=== PATIENT | male | born 1940 | race Caucasian/White ===

== ENCOUNTER 2017-08-05 15:40 | Inpatient (IN) | payer MEDICARE, MEDICAID ==
--- NOTE | 2017-08-05 15:48 | ED Physician Chart ---
ED Chief Complaint/HPI - Patient Information Date Seen:: 08/05/17 Time Seen:: 15:35 Chief Complaint:: Dysuria History of Present Illness:: onset x one day of dysuria; hx of UTIs; no report of trauma, H/As, neck pain, cough, C/P, SOB, Abd. Pain, A/N/V/D/C, fever, chills, or bleeding Historian:: Patient, EMS Review:: Nurse's Note Reviewed, Old Chart Reviewed, EMS run form Reviewed ED Review of Systems - Review of Systems General/Constitutional: Fever, No chills, No weight loss, No weakness, No diaphoresis, No edema, No loss of appetite Skin: No skin lesions, No rash, No bruising Head: No headache, No light-headedness Eyes: No loss of vision, No pain, No diplopia ENT: No earache, No nasal drainage, No sore throat, No tinnitus Neck: No neck pain, No swelling, No thyromegaly, No stiffness, No mass noted Cardio Vascular: No chest pain, No palpitations, No PND, No orthopnea, No edema Pulmonary: No SOB, No cough, No sputum, No wheezing GI: No nausea, No vomiting, No diarrhea, No pain, No melena, No hematochezia, No constipation, No hematemesis G/U: Dysuria, Frequency, Hematuria, No nacturia Musculoskeletal: No bone or joint pain, No back pain, No muscle pain Endocrine: No polyuria, No polydipsia Psychiatric: No prior psych history, No depression, No anxiety, No suicidal ideation, No homicidal ideation, No auditory hallucination, No visual hallucination Hematopoietic: No bruising, No lymphadenopathy Allergic/Immuno: No urticaria, No angioedema Neurological: No syncope, No focal symptoms, No weakness, No paresthesia, No headache, No seizure, No dizziness, No confusion, No vertigo ED Past Medical History - Past Medical History Obtainable: Yes Past Medical History: HTN, Dyslipidemia, PUD/GERD, Dementia, Other (UTIs; Parkinson's Disease) Family History: Diabetes Melitus, HTN Social History: Non Smoker, No Alcohol, No Drug Use, Single, Care Facility Surgical History: None Psychiatricy History: Dementia Medication: Reviewed ED Physical Exam - Physical Examination General/Constitutional: Awake, Well-developed, well-nourished, Alert, No distress, GCS 15, Non-toxic appearing, Ambulatory Head: Atraumatic Eyes: Lids, conjuctiva normal, PERRL, EOMI Skin: Nl inspection, No rash, No skin lesions, No ecchymosis, Well hydrated, No lymphadenopathy ENMT: External ears, nose nl, TM canals nl, Nasal exam nl, Lips, teeth, gums nl , Oropharynx nl, Tonsils nl Neck: Nontender, Full ROM w/o pain, No JVD, No nuchal rigidity, No bruit, No mass, No stridor Respiratory: Nl effort/Exclusion, Clear to Auscultation, No Wheeze/Rhonchi/Rales Cardio Vascular: RRR, No murmur, gallop, rubs, NL S1 S2, Carotid/Femoral/Distal pulses equal bilaterally GI: No tenderness/rebounding/guarding, No organomegaly, No hernia, Normal BS's, Nondistended, No mass/bruits, No McBurney tenderness, Rectum exam nl : No CVA tenderness Extremities: No tenderness or effusion, Full ROM, normal strength in all extremities, No edema, Normal digits & nails Neuro/Psych: Alert/oriented, DTR's symmetric, Normal sensory exam, Normal motor strength, Judgement/insight normal, Mood normal, Normal gait, No focal deficits Misc: Normal back, No paraspinal tenderness ED Labs/Radiology/EKG Results - Lab Results Comments:: H/H: + Anemia; BUN: 37; U/A: + Pyuria., Hematuria; Na+: 134 ED Septic Shock - . Is Septic Shock (SBP<90, OR Lactate>4 mmol\L) present?: No ED Reassessment (Disposition) - Reassessment Reassessment Condition:: Improved - Diagnosis Diagnosis:: Dx: Hyponatremia; Dehydration; Anemia; UTI; Cystitis - Aftercare/Follow up Instructions Aftercare/Follow-Up Instructions:: Counseled pt regarding lab results/diagnosis & need follow up, Counseled pt & family regarding lab results/diagnosis & need follow up - Patient Disposition Discharge/Transfer:: Acute Care w/in this hosp Accepting Physician:: Dr. Yoder Time Called:: [id number] Time Responded:: 17:45 Admitted to:: Med/Surg Spoke to:: Dr. Yoder Admitting Medical Physician:: Dr. Yoder Condition at Disposition:: Stable, Improved
[2017-08-05 16:25] LABS: % BASOPHILS 0.4 % (0.0-2.0); % EOSINOPHILS 3.3 % (0.0-5.0); % LYMPHOCYTES 16.5 % (20.0-50.0); % MONOCYTES 7.3 % (2.0-10.0); % NEUTROPHILS 72.5 % (40.0-80.0); EOSINOPHILE ABSOLUTE 0.3 Th/cmm (0.1-0.4); HEMATOCRIT 34.9 % (41.0-60); HEMOGLOBIN 11.7 gm/dL (12-16); LYMPHOCYTE ABSOLUTE 1.4 Th/cmm (1.5-3.0); MEAN CELL VOLUME 89.6 fl (80-99); MEAN CORPUSCULAR HEMOGLOBIN 30.1 pg (27.0-31.0); MEAN CORPUSCULAR HGB CONC 33.6 pg (28.0-36.0); MEAN PLATELET VOLUME 7.5 fl; MONOCYTE ABSOLUTE 0.6 Th/cmm (0.3-1.0); NEUTROPHILE ABSOLUTE 6.1 Th/cmm (1.8-8.0); PLATELET COUNT 255 Th/cmm (150-400); RED BLOOD COUNT 3.89 Mil/cmm (3.80-5.80); RED CELL DISTRIBUTION WIDTH 13.7 % (11.5-20.0); WHITE BLOOD COUNT 8.4 Th/cmm (4.8-10.8)
[2017-08-05 16:37] LABS: INR 0.91 (0.5-1.4); PROTHROMBIN TIME (TEST) 9.5 SECONDS (9.5-11.5)
[2017-08-05 16:43] LABS: ALB/GLOB RATIO 1.2 (1.0-1.8); ALBUMIN 4.4 gm/dL (4.2-5.5); ALKALINE PHOSPHATASE 105 U/L (34-104); ANION GAP 12.5 (7.0-16.0); BILIRUBIN,TOTAL 0.3 mg/dL (0.3-1.0); BUN - UREA NITROGEN 37 mg/dL (7-25); CALCIUM SERUM 9.5 mg/dL (8.6-10.3); CARBON DIOXIDE 23.2 mEq/L (21.0-31.0); CHLORIDE 103 mEq/L (98-107); CREATININE - SERUM 1.4 mg/dL (0.7-1.3); CREATININE KINASE 58 U/L (30-223); GLUCOSE 148 mg/dL (70-105); POTASSIUM SERUM 4.7 mEq/L (3.5-5.1); SGOT 8 U/L (13-39); SGPT/ALT 8 U/L (7-52); SODIUM SERUM 134 mEq/L (136-145); TOTAL PROTEIN,SERUM 8.1 gm/dL (6.0-8.3)
[2017-08-05 16:44] LABS: TROP I 0.01 ng/mL (0.01-0.05)
[2017-08-05 16:46] LABS: URINE BILIRUBIN NEGATIVE (NEGATIVE); URINE BLOOD LARGE (NEGATIVE); URINE GLUCOSE (UA) NEGATIVE (NEGATIVE); URINE KETONE NEGATIVE (NEGATIVE); URINE LEUKOCYTE ESTERASE LARGE (NEGATIVE); URINE MICROSCOPIC INDICATED? YES; URINE NITRATE NEGATIVE (NEGATIVE); URINE PH 5.5 (4.6 - 8.0); URINE PROTEIN NEGATIVE (NEGATIVE); URINE SOURCE MIDSTREAM; URINE UROBILINOGEN 0.2 E.U./dL (0.2 - 1.0)
[2017-08-05 16:51] LABS: URINE CLARITY CLOUDY (CLEAR); URINE COLOR YELLOW
[2017-08-05 16:52] LABS: URINE BACTERIA 1+ /hpf (NONE SEEN); URINE EPITHELIAL CELLS FEW /lpf (FEW); URINE RBC >100 /hpf (0-5)
[2017-08-05] MEDS ORDERED: cefTRIAXone 1 GM in Sodium Chloride 0.9% 50 ML IV ONE (17:05)
[2017-08-05] MEDS ORDERED: Sodium Chloride 0.9% 1,000 ML IV ONE (17:26)
[2017-08-05] MEDS ORDERED: Pneumococcal Vaccine 0.5 mL Vial IM ONE (23:33)
--- NOTE | 2017-08-06 07:40 | Diagnostic Imaging Report ---
CHEST X-RAY: AP view INDICATION: pain COMPARISON: None FINDINGS: Suboptimal lung volumes are seen with increased interstitial lung markings and bibasal atelectasis. No focal consolidation or effusions. Borderline prominent heart is noted, accentuated by patient's low lung volumes. Degenerative changes of the spine are noted. IMPRESSION: Suboptimal lung volumes with increased interstitial lung markings. Findings favor chronic lung changes, however, a marginal degree of congestion cannot be excluded. Bibasal atelectatic changes with no focal consolidation identified.
[2017-08-06 09:15] LABS: % BASOPHILS 0.9 % (0.0-2.0); % EOSINOPHILS 2.2 % (0.0-5.0); % LYMPHOCYTES 16.1 % (20.0-50.0); % NEUTROPHILS 74.8 % (40.0-80.0); BASOPHILE ABSOLUTE 0.1 Th/cumm (0-0.2); EOSINOPHILE ABSOLUTE 0.2 Th/cmm (0.1-0.4); HEMATOCRIT 34.5 % (41.0-60); HEMOGLOBIN 11.7 gm/dL (12-16); LYMPHOCYTE ABSOLUTE 1.4 Th/cmm (1.5-3.0); MEAN CELL VOLUME 88.6 fl (80-99); MEAN CORPUSCULAR HEMOGLOBIN 30.1 pg (27.0-31.0); MEAN CORPUSCULAR HGB CONC 33.9 pg (28.0-36.0); MEAN PLATELET VOLUME 7.1 fl; MONOCYTE ABSOLUTE 0.5 Th/cmm (0.3-1.0); NEUTROPHILE ABSOLUTE 6.7 Th/cmm (1.8-8.0); PLATELET COUNT 246 Th/cmm (150-400); RED CELL DISTRIBUTION WIDTH 13.4 % (11.5-20.0); WHITE BLOOD COUNT 8.9 Th/cmm (4.8-10.8)
[2017-08-06 09:34] LABS: INR 1.05 (0.5-1.4); PROTHROMBIN TIME (TEST) 10.9 SECONDS (9.5-11.5)
[2017-08-06 09:37] LABS: ALB/GLOB RATIO 1.1 (1.0-1.8); ALKALINE PHOSPHATASE 85 U/L (34-104); ANION GAP 12.8 (7.0-16.0); BILIRUBIN,TOTAL 0.4 mg/dL (0.3-1.0); BUN - UREA NITROGEN 26 mg/dL (7-25); CALCIUM SERUM 9.2 mg/dL (8.6-10.3); CARBON DIOXIDE 21.9 mEq/L (21.0-31.0); CHLORIDE 105 mEq/L (98-107); CREATININE - SERUM 1.1 mg/dL (0.7-1.3); GLUCOSE 129 mg/dL (70-105); POTASSIUM SERUM 4.7 mEq/L (3.5-5.1); SGOT 10 U/L (13-39); SGPT/ALT 24 U/L (7-52); SODIUM SERUM 135 mEq/L (136-145); TOTAL PROTEIN,SERUM 7.6 gm/dL (6.0-8.3)
[2017-08-06] MEDS ORDERED: VTE Chemical Prophylaxis Screen/Admission MC PRN (09:53)
[2017-08-06] MEDS ORDERED: Ertapenem 1 GM in Sodium Chloride 0.9% 100 ML IV SCH (10:00)
--- NOTE | 2017-08-06 10:24 | History & Physical ---
ADMIT DATE: 08/06/2017 THE PATIENT'S ID: A 77-year-old male. CHIEF COMPLAINT: Sent to Emergency Room for persistent hematuria, increasing lethargy, and cough for 1 week. HISTORY OF PRESENT ILLNESS: The patient is a 77-year-old resident of [facility] with history of COPD, coronary artery disease, hypertension, GERD, history of neurogenic bladder, and Parkinson's disease, presented to Emergency Room from [facility] after the patient was noted to have increasing confusion, persistent UTI with hematuria in spite of getting antibiotics. When the patient arrived in the Emergency Room, the patient was worked up and noted to have elevated lactic acid with elevated BUN and creatinine. The patient was advised to be admitted to the hospital for further treatment. The patient also had a chest x-ray done, which did reveal questionable pneumonitis as well. The patient does not provide meaningful history due to patient's current condition. PAST MEDICAL HISTORY: Remarkable for: 1. Parkinson's. 2. Neurogenic bladder. 3. Hypertension. 4. Coronary artery disease. 5. GERD. 6. Anemia of chronic disease. 7. COPD. MEDICATIONS AT HOME: The patient is taking multiple medications, which has been reviewed and reconciled appropriately. ALLERGIES: The patient is not allergic to medications. SOCIAL HISTORY: The patient lives [place] a [facility]. The patient does not smoke, does not drink. FAMILY MEDICAL HISTORY: Unavailable. REVIEW OF SYSTEMS: Unable to obtain meaningful history from the patient. PHYSICAL EXAMINATION: GENERAL: The patient is alert, awake, lying in bed. VITAL SIGNS: Temperature 97.8, pulse 87, respiratory rate 18, blood pressure 120/68. HEENT: Normocephalic, atraumatic. Extraocular muscles are intact. Tongue was pink and coated. Mask-like face noted. NECK: Supple, no JVD, no hepatojugular reflex. No lymphadenopathy, thyromegaly. HEART: Both heart sounds are regular. No S3, no S4. CHEST AND LUNGS: Equal in expansion with decreased breath sounds in both bases noted with mild expiratory wheezing. ABDOMEN: Soft. No guarding, no rigidity. Bowel sounds are present. No palpable mass. EXTREMITIES: No edema. Peripheral pulses +1. No calf tenderness. NEUROLOGIC: Alert, awake, follows command. ___ spasticity noted. AVAILABLE DIAGNOSTIC DATA: Performed in the Emergency Room, white count of 9.4, hemoglobin 11.7, platelet count of 255. BUN and creatinine is 37 and 1.4, sodium 134, potassium 4.7, glucose 148. Alkaline phosphatase 105. Urine remarkable for large amount of blood, large amount of leukocyte esterase, more than 100 RBCs, urine WBC 10-25 wth+1 bacteria noted. Chest x-ray remarkable for bilateral infiltrate noted. EKG, no ST-T changes representing acute ischemia. CLINICAL IMPRESSIONS: 1. Increasing lethargy secondary to encephalopathy, most likely from infection. 2. Persistent hematuria with persistent urinary tract infection, needs for further evaluation by infectious disease and possible urologist. 3. Chronic obstructive pulmonary disease. 4. Coronary artery disease. 5. Hypertension. 6. Hyperlipidemia. 7. Neurogenic bladder. 8. Degenerative joint disease. 9. Fall risk. 10. Coronary artery disease. PLAN: 1. Admit this patient to Med/Surg floor. 2. IV ertapenem. 3. Infectious Disease consultation. 4. Urology consultation for evaluation for recurrent urinary tract infection. 5. Appropriate home medicine reconciliation. 6. Blood cultures. 7. Urine cultures. 8. Follow lab. 9. Follow consult recommendation. 10. Symptoms management. 11. Medication management. 12. Care plan reviewed and discussed. JOB# [id number]
[2017-08-06] MEDS: Aspirin 81mg Chewable Tab PO SCH (10:29)
[2017-08-06] MEDS: Atorvastatin Calcium 10 MG TAB PO SCH (10:29)
[2017-08-06] MEDS: Pantoprazole 40 mg EC Tab PO SCH (10:30)
[2017-08-06] MEDS: Ferrous Sulfate 325 MG TAB PO SCH ×2 (10:30→17:14)
[2017-08-06] MEDS: Multivitamin Tab PO SCH (10:30)
[2017-08-06] MEDS: Albuterol Nebulizer 2.5mg/3mL HHN SCH ×4 (11:00→23:18)
[2017-08-06] MEDS: Ipratropium Neb 0.5 mg/2.5 mL UD HHN SCH ×4 (11:00→23:18)
--- NOTE | 2017-08-06 17:44 | Consultation ---
Consult Note - Consult Note Service Date: 08/06/17 Referring Physician: Harris Yoder Consult Note: PHYSICIAN Consultation Note: Date of Admission: 08/05/17 Purpose of Consultation: uti, hematuria. Chief Complaint: Patient JANETH CHAIREZ was admitted to location Medical/ Surgical Unit I with UTI. History of Present Illness: 77 year-old male with history Pakinson's disease, dementia, Neurogenic bladder, indwelling Jensen catheter, HTn, COPD, GERD, CAD magaly tfrom the SNF for persistent UTI and hematuria. On initial evaluation, his temperature was 98.9 degree F and WBC Count was 8,400. Meroepnem was started and ID consult was called for antibiotic management. Recent urine culture grew ESBL positive Klebsiella pneumoniae. Lactic acid was also elevated. Past Medical History: Pakinson's disease, dementia, Neurogenic bladder, indwelling Jensen catheter, HTn, COPD, GERD, CAD Diagnoses HYPERLIPIDEMIA, UNSPECIFIED (08/05/17) ENCEPHALOPATHY, UNSPECIFIED (08/05/17) ESSENTIAL (PRIMARY) HYPERTENSION (08/05/17) ATHSCL HEART DISEASE OF [place] CORONARY ARTERY W/O ANG PCTRS (08/05/17) CHRONIC OBSTRUCTIVE PULMONARY DISEASE, UNSPECIFIED (08/05/17) UNSPECIFIED OSTEOARTHRITIS, UNSPECIFIED SITE (08/05/17) NEUROMUSCULAR DYSFUNCTION OF [place], UNSPECIFIED (08/05/17) URINARY TRACT INFECTION, SITE NOT SPECIFIED (08/05/17) DO NOT RESUSCITATE (08/05/17) HISTORY OF FALLING (08/05/17) Allergies Allergy/AdvReac Type Severity Reaction Status Date / Time No Known Allergies Allergy Verified 08/05/17 15:48 Vital Signs Temp 97.2 F 08/06/17 05:04 Pulse 82 08/06/17 17:12 Resp 18 08/06/17 15:26 BP 170/71 08/06/17 17:12 Pulse Ox 99 08/06/17 15:26 Intake & Output 08/05/17 08/06/17 08/06/17 18:59 06:59 18:59 Intake Total 200 Output Total 550 Balance -550 200 Weight (lbs) 67.404 kg 67.132 kg Intake: Oral 200 Output: Urine 550 Other: # Voids 0 Weight Source Bedscale Bedscale Laboratory Results - last 24 hr 04/13/18 04/13/18 04/13/18 09:05 09:05 09:05 WBC 8.9 RBC 3.90 Hgb 11.7 L Hct 34.5 L MCV 88.6 MCH 30.1 MCHC Differential 33.9 RDW 13.4 Plt Count 246 246 MPV 7.1 Neutrophils % 74.8 Lymphocytes % 16.1 L Monocytes % 6.0 Eosinophils % 2.2 Basophils % 0.9 PT 10.9 INR 1.05 PTT (Actin FS) 27.4 Fibrinogen 256.0 D-Dimer 442 H Sodium 135 L Potassium 4.7 Chloride 105 Carbon Dioxide 21.9 Anion Gap 12.8 BUN 26 H Creatinine 1.1 Est GFR ( Amer) TNP Est GFR (Non-Af Amer) TNP BUN/Creatinine Ratio 23.6 Glucose 129 H Calcium 9.2 Total Bilirubin 0.4 AST 10 L ALT 24 Alkaline Phosphatase 85 Total Protein 7.6 Albumin 4.0 L Globulin 3.6 Albumin/Globulin Ratio 1.1 Home Medication Medication Instructions Recorded Type Acetaminophen [Tylenol] 650 mg PO Q6HR PRN 08/05/17 History Albuterol Nebulizer 2.5mg/3mL 2.5 mg IH Q4HR 08/05/17 History [Albuterol Neb UD*] Albuterol Sulfate [Proair Hfa] 2 puff IH Q4H PRN 08/05/17 History Ascorbic Acid [Vitamin C] 500 mg PO BID 08/05/17 History Aspirin [Aspirin Chewable] 81 mg PO DAILY 08/05/17 History Atorvastatin Calcium [Lipitor] 20 mg PO DAILY 08/05/17 History Bisacodyl [Dulcolax 10 Mg Supp] 10 mg RC DAILY PRN 08/05/17 History Carbidopa/Levodopa 1 odt PO HS 08/05/17 History [Carbidopa/Levodopa 25 mg-100 mg] Carbidopa/Levodopa 2 odt PO TID 08/05/17 History [Carbidopa/Levodopa 25 mg-100 mg] Clopidogrel [Plavix] 75 mg PO DAILY 08/05/17 History Cranberry Fruit Concentrate 2 tab PO BID 08/05/17 History [Cranberry] Docusate Sodium [Colace] 100 mg PO BID 08/05/17 History Ferrous Sulfate [Iron] 1 tab PO BID 08/05/17 History Furosemide [Lasix] 40 mg PO DAILY 08/05/17 History Gentamicin Sulfate/Pf [Gentamicin 80 mg IV DAILY 08/05/17 History 10 mg/ml Vial] Ipratropium Neb 0.5 mg/2.5 mL 0.5 mg HHN Q4HR 08/05/17 History [Atrovent Neb 0.5MG/2.5ML] Lisinopril [Zestril] 20 mg PO BID 08/05/17 History Loperamide HCl [Imodium A-D] 2 mg PO Q12H PRN 08/05/17 History Magnesium Hydroxide [Milk of 30 ml PO Q12H PRN 08/05/17 History Magnesia] Methenamine Hippurate [Hiprex] 1 gm PO HS 08/05/17 History Metoprolol Tartrate 50 mg PO BID 08/05/17 History Multiple Minerals 1 tab PO DAILY 08/05/17 History Mylanta Suspension 30 ml PO Q6H PRN 08/05/17 History Omeprazole 20 mg PO DAILY 08/05/17 History Tramadol HCl [Ultram] 50 mg PO QPM 08/05/17 History Current Medications Generic Name Dose Route Start Last Admin Trade Name Freq PRN Reason Stop Dose Admin Acetaminophen 650 mg 08/06/17 08:51 Tylenol PO 10/05/17 08:50 Q6HR PRN PAIN Albuterol Sulfate 2.5 mg 08/06/17 11:00 08/06/17 15:25 Albuterol 2.5mg/3ml Neb Ud HHN 10/05/17 10:59 2.5 mg Q4HRT YUDITH Administration Ascorbic Acid 500 mg 08/06/17 09:00 08/06/17 17:10 Vitamin C PO 10/05/17 08:59 500 mg BID YUDITH Administration Aspirin 81 mg 08/06/17 09:00 08/06/17 10:29 Aspirin Chewable PO 10/05/17 08:59 81 mg DAILY YUDITH Administration Atorvastatin Calcium 20 mg 08/06/17 09:00 08/06/17 10:29 Lipitor PO 10/05/17 08:59 20 mg DAILY YUDITH Administration Bisacodyl 10 mg 08/06/17 08:51 Dulcolax 10 Mg Supp RC 10/05/17 08:50 DAILY PRN Constipation Carbidopa/Levodopa 2 tab 08/06/17 10:00 08/06/17 14:50 Sinemet 25mg-100 Mg PO 10/05/17 09:59 2 tab TID YUDITH Administration Carbidopa/Levodopa 1 tab 08/06/17 21:00 Sinemet 25mg-100 Mg PO 10/05/17 20:59 HS YUDITH Clopidogrel Bisulfate 75 mg 08/06/17 09:00 08/06/17 10:30 Plavix PO 10/05/17 08:59 75 mg DAILY YUDITH Administration Docusate Sodium 100 mg 08/06/17 09:00 08/06/17 17:14 Colace PO 10/05/17 08:59 100 mg BID YUDITH Administration Ferrous Sulfate 325 mg 08/06/17 10:00 08/06/17 17:14 Iron PO 10/05/17 09:59 325 mg BID YUDITH Administration Furosemide 40 mg 08/06/17 09:00 08/06/17 10:30 Lasix PO 10/05/17 08:59 40 mg DAILY YUDITH Administration Meropenem 1 gm/ Sodium 100 mls @ 100 mls/hr 08/06/17 16:30 08/06/17 16:29 Chloride IV 10/05/17 16:29 100 mls/hr Q12H YUDITH Administration Ipratropium [place] 0.5 mg 08/06/17 11:00 08/06/17 15:25 Atrovent Neb 0.5mg/2.5ml HHN 10/05/17 10:59 0.5 mg Q4HRT YUDITH Administration Lisinopril 20 mg 08/06/17 09:00 08/06/17 17:12 Zestril PO 10/05/17 08:59 20 mg BID YUDITH Administration Metoprolol Tartrate 50 mg 08/06/17 09:00 08/06/17 17:10 Lopressor PO 10/05/17 08:59 50 mg BID YUDITH Administration Miscellaneous 1 ea 08/06/17 09:53 Vte Chemical Prophylaxis Screen/ Admission 10/05/17 09:52 PRN PRN PROTOCOL Multivitamins/Vitamin C 1 tab 08/06/17 10:00 08/06/17 10:30 Theragran PO 10/05/17 09:59 1 tab DAILY YUDITH Administration Pantoprazole Sodium 40 mg 08/06/17 09:00 08/06/17 10:30 Protonix PO 10/05/17 08:59 40 mg QDAC YUDITH Administration Tramadol HCl 50 mg 08/06/17 17:00 08/06/17 17:13 Ultram PO 10/05/17 16:59 Not Given QPM YUDITH Review of Systems: A 12 point ROS was reviewed with the pertinent positive and negatives noted in the HPI. Unable to obtain. Social History Smoking Status Smoker, status unknown Family Medical History Not available. Physical Exam: General: comfortable, WN WD. HEENT: HEAD: NC NT. ORAL CAVITY: moist pink tongue, eyes pallor is present. Neck: Supple, no JVD, no Carotid bruit. Cardio: S1 and S2 WNL. Respiratory: Vesicular breath sounds, no crackles, Abdominal: Soft NT ND BS present. Genital/Urinary: Jensen catheter: clear urine at this time. Extremities: NCCE. Neurological: Alert. follows commands. Assessment: 1. UTI. ESBL + klebsiella. 2. Dementia. 3. Neurogenic bladder. 4. Parkinson's disease. 5. HTN. 6. H/o CAD. 7. GERD. 8. Renal insuffciency. Improving. 9. Lactic acidosis ? renal failure. 10. Dementia. Plan: Continue same treatment. Abx: Meropenem. Renal US. Thank you, Dr Yoder for involving me in taking care of this patient,. Signed, Angel Moreno M.D. [id number]
[2017-08-06] MEDS ORDERED: METHENAMINE HIPPURATE 1 GM PO SCH (21:00)
[2017-08-07] MEDS: Meropenem 1 GM in Sodium Chloride 0.9% 100 ML IV SCH ×3 (00:01→17:23)
[2017-08-07] MEDS: Albuterol Nebulizer 2.5mg/3mL HHN SCH ×6 (03:26→22:26)
[2017-08-07] MEDS: Ipratropium Neb 0.5 mg/2.5 mL UD HHN SCH ×6 (03:26→22:26)
[2017-08-07 05:41] LABS: % BASOPHILS 0.1 % (0.0-2.0); % EOSINOPHILS 2.3 % (0.0-5.0); % LYMPHOCYTES 18.8 % (20.0-50.0); % MONOCYTES 9.6 % (2.0-10.0); % NEUTROPHILS 69.2 % (40.0-80.0); EOSINOPHILE ABSOLUTE 0.2 Th/cmm (0.1-0.4); HEMATOCRIT 32.5 % (41.0-60); HEMOGLOBIN 10.9 gm/dL (12-16); LYMPHOCYTE ABSOLUTE 1.5 Th/cmm (1.5-3.0); MEAN CELL VOLUME 89.7 fl (80-99); MEAN CORPUSCULAR HEMOGLOBIN 30.2 pg (27.0-31.0); MEAN CORPUSCULAR HGB CONC 33.6 pg (28.0-36.0); MEAN PLATELET VOLUME 7.5 fl; MONOCYTE ABSOLUTE 0.8 Th/cmm (0.3-1.0); NEUTROPHILE ABSOLUTE 5.4 Th/cmm (1.8-8.0); PLATELET COUNT 227 Th/cmm (150-400); RED BLOOD COUNT 3.62 Mil/cmm (3.80-5.80); RED CELL DISTRIBUTION WIDTH 13.3 % (11.5-20.0); WHITE BLOOD COUNT 7.9 Th/cmm (4.8-10.8)
[2017-08-07 06:00] LABS: ALB/GLOB RATIO 1.3 (1.0-1.8); ALBUMIN 3.9 gm/dL (4.2-5.5); ALKALINE PHOSPHATASE 68 U/L (34-104); ANION GAP 12.8 (7.0-16.0); BILIRUBIN,TOTAL 0.4 mg/dL (0.3-1.0); BUN - UREA NITROGEN 22 mg/dL (7-25); CALCIUM SERUM 9.2 mg/dL (8.6-10.3); CARBON DIOXIDE 26.4 mEq/L (21.0-31.0); CHLORIDE 105 mEq/L (98-107); CREATININE - SERUM 1.2 mg/dL (0.7-1.3); GLUCOSE 123 mg/dL (70-105); POTASSIUM SERUM 4.2 mEq/L (3.5-5.1); SGOT 9 U/L (13-39); SGPT/ALT 13 U/L (7-52); SODIUM SERUM 140 mEq/L (136-145)
[2017-08-07] MEDS: Pantoprazole 40 mg EC Tab PO SCH (06:48)
[2017-08-07] MEDS: Ferrous Sulfate 325 MG TAB PO SCH ×2 (09:39→17:15)
[2017-08-07] MEDS: Multivitamin Tab PO SCH (09:41)
[2017-08-07] MEDS: Aspirin 81mg Chewable Tab PO SCH (09:41)
[2017-08-07] MEDS: Atorvastatin Calcium 10 MG TAB PO SCH (09:42)
--- NOTE | 2017-08-07 19:25 | Infectious Disease Prog Note ---
Infectious Disease Subjective - Review of Systems Service Date: 08/07/17 Subjective: No new change, no fever. Infectious Disease Objective - Results Result Diagrams: 08/07/17 05:00 08/07/17 05:00 Recent Labs: Laboratory Last Values WBC 7.9 Th/cmm (4.8-10.8) 08/07/17 05:00 RBC 3.62 Mil/cmm (3.80-5.80) L 08/07/17 05:00 Hgb 10.9 gm/dL (12-16) L 08/07/17 05:00 Hct 32.5 % (41.0-60) L 08/07/17 05:00 MCV 89.7 fl (80-99) 08/07/17 05:00 MCH 30.2 pg (27.0-31.0) 08/07/17 05:00 MCHC Differential 33.6 pg (28.0-36.0) 08/07/17 05:00 RDW 13.3 % (11.5-20.0) 08/07/17 05:00 Plt Count 227 Th/cmm (150-400) 08/07/17 05:00 MPV 7.5 fl 08/07/17 05:00 Neutrophils % 69.2 % (40.0-80.0) 08/07/17 05:00 Lymphocytes % 18.8 % (20.0-50.0) L 08/07/17 05:00 Monocytes % 9.6 % (2.0-10.0) 08/07/17 05:00 Eosinophils % 2.3 % (0.0-5.0) 08/07/17 05:00 Basophils % 0.1 % (0.0-2.0) 08/07/17 05:00 Plt Count 246 Th/cmm (150-750) 08/06/17 09:05 PT 10.9 SECONDS (9.5-11.5) 08/06/17 09:05 INR 1.05 (0.5-1.4) 08/06/17 09:05 PTT (Actin FS) 27.4 SECONDS (26.0-38.0) 08/06/17 09:05 Fibrinogen 256.0 mg/dL (200.0-400.0) 08/06/17 09:05 D-Dimer 442 ng/mL (100-400) H 08/06/17 09:05 Sodium 140 mEq/L (136-145) 08/07/17 05:00 Potassium 4.2 mEq/L (3.5-5.1) 08/07/17 05:00 Chloride 105 mEq/L (98-107) 08/07/17 05:00 Carbon Dioxide 26.4 mEq/L (21.0-31.0) 08/07/17 05:00 Anion Gap 12.8 (7.0-16.0) 08/07/17 05:00 BUN 22 mg/dL (7-25) 08/07/17 05:00 Creatinine 1.2 mg/dL (0.7-1.3) 08/07/17 05:00 Est GFR ( Amer) TNP 08/07/17 05:00 Est GFR (Non-Af Amer) TNP 08/07/17 05:00 BUN/Creatinine Ratio 18.3 08/07/17 05:00 Glucose 123 mg/dL (70-105) H 08/07/17 05:00 Whole Bld Lactic Acid 1.28 mmol/L (0.60-1.99) 08/05/17 18:22 Calcium 9.2 mg/dL (8.6-10.3) 08/07/17 05:00 Total Bilirubin 0.4 mg/dL (0.3-1.0) 08/07/17 05:00 AST 9 U/L (13-39) L 08/07/17 05:00 ALT 13 U/L (7-52) 08/07/17 05:00 Alkaline Phosphatase 68 U/L (34-104) 08/07/17 05:00 Creatine Kinase 58 U/L (30-223) 08/05/17 16:20 Troponin I 0.01 ng/mL (0.01-0.05) 08/05/17 16:20 Total Protein 7.0 gm/dL (6.0-8.3) 08/07/17 05:00 Albumin 3.9 gm/dL (4.2-5.5) L 08/07/17 05:00 Globulin 3.1 gm/dL 08/07/17 05:00 Albumin/Globulin Ratio 1.3 (1.0-1.8) 08/07/17 05:00 Urine Source [place] 04/12/18 16:35 Urine Color YELLOW 08/05/17 16:35 Urine Clarity CLOUDY (CLEAR) 08/05/17 16:35 Urine pH 5.5 (4.6 - 8.0) 08/05/17 16:35 Ur Specific [place] 1.015 (1.005-1.030) 08/05/17 16:35 Urine Protein NEGATIVE mg/dL (NEGATIVE) 08/05/17 16:35 Urine Glucose (UA) NEGATIVE mg/dL (NEGATIVE) 08/05/17 16:35 Urine Ketones NEGATIVE mg/dL (NEGATIVE) 08/05/17 16:35 Urine Blood LARGE (NEGATIVE) H 08/05/17 16:35 Urine Nitrate NEGATIVE (NEGATIVE) 08/05/17 16:35 Urine Bilirubin NEGATIVE (NEGATIVE) 08/05/17 16:35 Urine Urobilinogen 0.2 E.U./dL (0.2 - 1.0) 08/05/17 16:35 Ur Leukocyte Esterase LARGE (NEGATIVE) H 08/05/17 16:35 Urine RBC >100 /hpf (0-5) H 08/05/17 16:35 Urine WBC 10-25 /hpf (0-5) H 08/05/17 16:35 Ur Epithelial Cells FEW /lpf (FEW) 08/05/17 16:35 Urine Bacteria 1+ /hpf (NONE SEEN) H 08/05/17 16:35 - Physical Exam Vitals and I&O: Vital Signs Temp 97.6 F 08/07/17 16:00 Pulse 84 08/07/17 19:20 Resp 18 08/07/17 19:20 BP 118/69 08/07/17 17:16 Pulse Ox 95 08/07/17 19:20 Intake & Output 08/07/17 08/07/17 08/08/17 06:59 18:59 06:59 Intake Total 220 640 Output Total 600 1600 Balance -380 -960 Weight (lbs) 66.395 kg 66.224 kg Intake: Intake, IV Amount 100 100 Meropenem 1 gm In Sodium 100 100 Chloride 0.9% 100 ml @ 100 mls/hr IV Q8H [facility] Rx# :[id number] Oral 120 540 Output: Urine 600 1600 Other: # Bowel Movements 1 Stool Characteristics Soft Hard Weight Source Bedscale Bedscale Active Medications: Current Medications Acetaminophen (Tylenol) 650 mg PO Q6HR PRN PRN Reason: PAIN Stop: 10/05/17 08:50 Albuterol Sulfate (Albuterol 2.5mg/3ml Neb Ud) 2.5 mg HHN Q4HRT YUDITH Stop: 10/05/17 10:59 Last Admin: 08/07/17 19:20 Dose: 2.5 mg Ascorbic Acid (Vitamin C) 500 mg PO BID YUDITH Stop: 10/05/17 08:59 Last Admin: 08/07/17 17:17 Dose: 500 mg Aspirin (Aspirin Chewable) 81 mg PO DAILY YUDITH Stop: 10/05/17 08:59 Last Admin: 08/07/17 09:41 Dose: 81 mg Atorvastatin Calcium (Lipitor) 20 mg PO DAILY YUDITH Stop: 10/05/17 08:59 Last Admin: 08/07/17 09:42 Dose: 20 mg Bisacodyl (Dulcolax 10 Mg Supp) 10 mg RC DAILY PRN PRN Reason: Constipation Stop: 10/05/17 08:50 Carbidopa/Levodopa (Sinemet 25mg-100 Mg) 2 tab PO TID YUDITH Stop: 10/05/17 09:59 Last Admin: 08/07/17 17:15 Dose: 2 tab Carbidopa/Levodopa (Sinemet 25mg-100 Mg) 1 tab PO HS YUDITH Stop: 10/05/17 20:59 Last Admin: 08/06/17 20:50 Dose: 1 tab Clopidogrel Bisulfate (Plavix) 75 mg PO DAILY YUDITH Stop: 10/05/17 08:59 Last Admin: 08/07/17 09:44 Dose: 75 mg Docusate Sodium (Colace) 100 mg PO BID YUDITH Stop: 10/05/17 08:59 Last Admin: 08/07/17 17:16 Dose: 100 mg Ferrous Sulfate (Iron) 325 mg PO BID YUDITH Stop: 10/05/17 09:59 Last Admin: 08/07/17 17:15 Dose: 325 mg Furosemide (Lasix) 40 mg PO DAILY YUDITH Stop: 10/05/17 08:59 Last Admin: 08/07/17 09:41 Dose: 40 mg Meropenem 1 gm/ Sodium (Chloride) 100 mls @ 100 mls/hr IV Q8H YUDITH Stop: 10/06/17 00:00 Last Admin: 08/07/17 17:23 Dose: 100 mls/hr Ipratropium [place] (Atrovent Neb 0.5mg/2.5ml) 0.5 mg HHN Q4HRT YUDITH Stop: 10/05/17 10:59 Last Admin: 08/07/17 19:20 Dose: 0.5 mg Lisinopril (Zestril) 20 mg PO BID YUDTIH Stop: 10/05/17 08:59 Last Admin: 08/07/17 17:16 Dose: 20 mg Metoprolol Tartrate (Lopressor) 50 mg PO BID YUDITH Stop: 10/05/17 08:59 Last Admin: 08/07/17 17:16 Dose: 50 mg Miscellaneous (Vte Chemical Prophylaxis Screen/ Admission) 1 [facility] PRN PRN PRN Reason: PROTOCOL Stop: 10/05/17 09:52 Multivitamins/Vitamin C (Theragran) 1 tab PO DAILY YUDITH Stop: 10/05/17 09:59 Last Admin: 08/07/17 09:41 Dose: 1 tab Pantoprazole Sodium (Protonix) 40 mg PO QDAC YUDITH Stop: 10/05/17 08:59 Last Admin: 08/07/17 06:48 Dose: 40 mg Tramadol HCl (Ultram) 50 mg PO QPM YUDITH Stop: 10/05/17 16:59 Last Admin: 08/07/17 17:15 Dose: 50 mg General: no acute distress, well developed, cachectic HEENT: atraumatic, normocephalic, PERRLA, EOMI, moist mucous membrane Neck: supple, no thyromegaly, no lymphadenopathy Cardiovascular: S1S2, regular Lungs: clear to auscultation bilaterally, clear to percussion Abdomen: soft, no tender, no distended, no mass, no rebound Extremities: no cyanosis, no clubbing, no edema Neurological: awake, alert, oriented Skin: intact - Procedures Procedures: Procedures Procedure Code Date BLOOD TRANSFUSION SERVICE 20623 08/03/98 CATARAC PHACOEMULS/ASPIR 13.41 02/17/10 CATARACT SURG W/IOL 1 STAGE 06903 02/17/10 CLOSED ENDOSCOPIC BIOPSY OF LARGE INTESTINE 45.25 08/03/98 COLONOSCOPY AND BIOPSY 57567 08/03/98 EGD BIOPSY SINGLE/MULTIPLE 49818 08/03/98 ESOPHAGOGASTRODUODENOSCOPY [EGD] W/CLOSED BIOPSY 45.16 08/03/98 INSERT LENS AT CATAR EXT 13.71 02/17/10 PACKED CELL TRANSFUSION 99.04 08/03/98 Infectious Disease Assmt/Plan - Problem List Patient Problems: All Active Problems RECURRENT AND UNRESOLVING UTI (Acute) - Assessment Assessment: 1. UTI. ESBL + klebsiella. 2. Dementia. 3. Neurogenic bladder. 4. Parkinson's disease. 5. HTN. 6. H/o CAD. 7. GERD. 8. Renal insuffciency. Improving. 9. Lactic acidosis ? renal failure. 10. Dementia. 11. Candiduria. - Plan Plan: Cont meropenem. continue diflucan.
[2017-08-08] MEDS: Meropenem 1 GM in Sodium Chloride 0.9% 100 ML IV SCH ×4 (00:03→23:26)
[2017-08-08] MEDS: Ipratropium Neb 0.5 mg/2.5 mL UD HHN SCH ×6 (02:01→23:53)
[2017-08-08] MEDS: Albuterol Nebulizer 2.5mg/3mL HHN SCH ×6 (02:01→23:52)
[2017-08-08] MEDS: Pantoprazole 40 mg EC Tab PO SCH (06:47)
--- NOTE | 2017-08-08 07:36 | Progress Notes ---
DATE: 08/07/2017 SUBJECTIVE: The patient seen and examined. The patient is lying in the bed. The patient remained afebrile, hemodynamically stable. No new event were reported on today's exam. OBJECTIVE: HEENT: No facial asymmetry. NECK: Supple, no JVD. HEART: Regular, no murmur. CHEST: Lung equal in expansion, no wheezing, no crackles. ABDOMEN: Soft, no guarding, no rigidity. Bowel sounds are present. NEUROLOGIC: Spasticity and tremor noted on upper and lower extremity. AVAILABLE LABORATORY DATA: White count of 7.9, hemoglobin 10.9, platelet count is 227. Electrolytes are within normal limit. Albumin of 3.9. Blood cultures are negative. Preliminary culture so far no growth. CLINICAL IMPRESSION: 1. History of extended spectrum beta-lactamase urinary tract infection, not responded very well in a senior care. The patient did have increasing lethargy and confusion. The patient did have elevated lactic acid, needs to be reevaluated by urologist as well as Infectious Disease. 2. Parkinson's disease. 3. Hypertension. 4. Hyperlipidemia. 5. Degenerative joint disease. 6. Coronary artery disease. 7. Chronic obstructive pulmonary disease. PLAN: The patient is to continue IV antibiotic as prescribed. Urology consultation is currently pending. Infectious Disease to follow. Continue other medication as prescribed. Provide symptoms management along with continuation of other treatment plan as directed. We will give further recommendations once we have further details are available. JOB# [id number]
[2017-08-08] MEDS: Multivitamin Tab PO SCH (08:48)
[2017-08-08] MEDS: Ferrous Sulfate 325 MG TAB PO SCH ×2 (08:49→17:24)
[2017-08-08] MEDS: Atorvastatin Calcium 10 MG TAB PO SCH (08:50)
[2017-08-08] MEDS: Aspirin 81mg Chewable Tab PO SCH (08:50)
[2017-08-08] MEDS: Lactobacillus Rhamnosus GG 15 Billion CFU CAP.SPRINK PO SCH (08:53)
[2017-08-08] MEDS ORDERED: Probiotic Screen MC PRN (09:00)
--- NOTE | 2017-08-08 09:47 | Diagnostic Imaging Report ---
Renal ultrasound HISTORY: Pyelonephritis, pain The right kidney measures 11.3 x 5.6 x 5.3 cm. There is a 5.0 cm sonolucent lesion extending off the lower pole of the right kidney consistent with a cyst. No hydronephrosis. The left kidney measures 11.0 x 4.6 x 4.9 cm. A 2.5 cm sonolucent lesion is seen in the lateral cortex consistent with a cyst. No hydronephrosis. Urinary bladder cannot be well evaluated due to lack of distention and presence of a Jensen catheter. IMPRESSION: 1. Findings consistent with bilateral renal cysts 2. No hydronephrosis
--- NOTE | 2017-08-08 16:21 | Consultation ---
DATE OF CONSULTATION: 08/08/2017 INDICATIONS: A 77-year-old gentleman came into the Emergency Room for hematuria in the Jensen catheter, lethargy and altered level of consciousness. He was further found to have anemia and slightly elevated creatinine and electrolyte imbalance. He was admitted for treatment of these conditions. He is nonverbal and retirement resident, unable to provide history, but seems to have had a chronic Jensen catheter for neurogenic bladder secondary to dementia and parkinsonism. When he came, there was some blood in the Jensen, which has resolved on its own. Since then, the culture has shown 30,000 colonies of yeast in the urine and lot of white and red cells consistent with infection, although some of these findings are secondary to colonization and not necessarily from infection. We do not have any other information about the patient's urologic history. PAST MEDICAL HISTORY: Significant for; 1. Parkinsonism, dementia and nonverbal status. 2. The patient needs a feeder to feed him every day. 3. History of hypertension, on medications. 4. History of coronary artery disease. 5. He also has GERD. 6. History of COPD and anemia. HOME MEDICATIONS: Albuterol inhaler, aspirin, Lipitor, stool softeners and laxatives, carbidopa, Plavix, which could also be contributing to the hematuria periodically, iron supplement, Lasix, eyedrops, lisinopril and p.r.n. medications for diarrhea, metoprolol, methenamine or Hiprex for urinary tract infection prevention, omeprazole, and tramadol. ALLERGIES: None. REVIEW OF SYSTEMS: Altered level of consciousness, but no fever or documented weight loss. No seizures noted. Does not complain of headaches. No chest pain, coughing or shortness of breath. No sore throat or recent change in vision. No abdominal pain, vomiting or diarrhea. Urologic as described. No skin or joint problems. PHYSICAL EXAMINATION: GENERAL: On exam, he is awake. He is alert, but is not communicable. He is not oriented. His is at the bedside. VITAL SIGNS: Temperature 98.5, heart rate 103, blood pressure 116/71. No fever recorded in the hospital. HEAD AND NECK: Normocephalic. Trachea central. Pupils equal and reactive. No jaundice. Thyroid and lymph nodes, not palpable. Carotid bruit absent. CHEST: Symmetrical. LUNGS: Clear. No rales or rhonchi. HEART: Sounds normal, in sinus rhythm, no murmur. ABDOMEN: Soft, nontender, no organomegaly, mass, or hernia. GENITALIA: Normal male. No evidence of epididymal orchitis and a Jensen catheter draining clear urine with minimal cloudiness at this time. EXTREMITIES: No edema or lymphadenopathy. NEUROLOGIC: Nonfocal. Moves all 4 limbs. LABORATORY DATA: White count has been normal since admission, it is 7.9, hemoglobin 10.9 and stable. No left shift. PT, PTT are not impressive. D-dimer elevated mildly to 442. Creatinine was 1.4 and has come down to 1.2. Electrolytes are normal now and lactic acid was 2.1, now down to 1.2. Urine culture showed yeast, but there is no other infection noted here in the culture while the blood cultures are negative. A chest x-ray shows questionable pneumonitis and a renal ultrasound shows renal cyst and no other abnormalities. IMPRESSION AND PLAN: Jensen catheter related urinary tract infection, possibly yeast that would best be treated by local irrigation and avoiding parenteral antibiotics as much as possible. He had mildly elevated lactic acid, but no significant white count or fever and therefore we could be more conservative if possible. We will initiate bladder irrigations daily and on an ongoing basis and change the Jensen catheter more frequently every 2-3 weeks rather than a month to further prevent Jensen catheter related infections. Catheter care, proper avoiding of stool contamination, etc. were also emphasized and explained to the nurses. Multiple other medical issues starting with dementia and parkinsonism are stable. History of chronic obstructive pulmonary disease, coronary artery disease and hypertension are chronic and also unchanged. Thank you for the referral. JOB# [id number]
--- NOTE | 2017-08-08 23:35 | Infectious Disease Prog Note ---
Infectious Disease Subjective - Review of Systems Service Date: 08/08/17 Infectious Disease Objective - Results Result Diagrams: 08/07/17 05:00 08/07/17 05:00 Recent Labs: Laboratory Last Values WBC 7.9 Th/cmm (4.8-10.8) 08/07/17 05:00 RBC 3.62 Mil/cmm (3.80-5.80) L 08/07/17 05:00 Hgb 10.9 gm/dL (12-16) L 08/07/17 05:00 Hct 32.5 % (41.0-60) L 08/07/17 05:00 MCV 89.7 fl (80-99) 08/07/17 05:00 MCH 30.2 pg (27.0-31.0) 08/07/17 05:00 MCHC Differential 33.6 pg (28.0-36.0) 08/07/17 05:00 RDW 13.3 % (11.5-20.0) 08/07/17 05:00 Plt Count 227 Th/cmm (150-400) 08/07/17 05:00 MPV 7.5 fl 08/07/17 05:00 Neutrophils % 69.2 % (40.0-80.0) 08/07/17 05:00 Lymphocytes % 18.8 % (20.0-50.0) L 08/07/17 05:00 Monocytes % 9.6 % (2.0-10.0) 08/07/17 05:00 Eosinophils % 2.3 % (0.0-5.0) 08/07/17 05:00 Basophils % 0.1 % (0.0-2.0) 08/07/17 05:00 Plt Count 246 Th/cmm (150-750) 08/06/17 09:05 PT 10.9 SECONDS (9.5-11.5) 08/06/17 09:05 INR 1.05 (0.5-1.4) 08/06/17 09:05 PTT (Actin FS) 27.4 SECONDS (26.0-38.0) 08/06/17 09:05 Fibrinogen 256.0 mg/dL (200.0-400.0) 08/06/17 09:05 D-Dimer 442 ng/mL (100-400) H 08/06/17 09:05 Sodium 140 mEq/L (136-145) 08/07/17 05:00 Potassium 4.2 mEq/L (3.5-5.1) 08/07/17 05:00 Chloride 105 mEq/L (98-107) 08/07/17 05:00 Carbon Dioxide 26.4 mEq/L (21.0-31.0) 08/07/17 05:00 Anion Gap 12.8 (7.0-16.0) 08/07/17 05:00 BUN 22 mg/dL (7-25) 08/07/17 05:00 Creatinine 1.2 mg/dL (0.7-1.3) 08/07/17 05:00 Est GFR ( Amer) TNP 08/07/17 05:00 Est GFR (Non-Af Amer) TNP 08/07/17 05:00 BUN/Creatinine Ratio 18.3 08/07/17 05:00 Glucose 123 mg/dL (70-105) H 08/07/17 05:00 Whole Bld Lactic Acid 1.28 mmol/L (0.60-1.99) 08/05/17 18:22 Calcium 9.2 mg/dL (8.6-10.3) 08/07/17 05:00 Total Bilirubin 0.4 mg/dL (0.3-1.0) 08/07/17 05:00 AST 9 U/L (13-39) L 08/07/17 05:00 ALT 13 U/L (7-52) 08/07/17 05:00 Alkaline Phosphatase 68 U/L (34-104) 08/07/17 05:00 Creatine Kinase 58 U/L (30-223) 08/05/17 16:20 Troponin I 0.01 ng/mL (0.01-0.05) 08/05/17 16:20 Total Protein 7.0 gm/dL (6.0-8.3) 08/07/17 05:00 Albumin 3.9 gm/dL (4.2-5.5) L 08/07/17 05:00 Globulin 3.1 gm/dL 08/07/17 05:00 Albumin/Globulin Ratio 1.3 (1.0-1.8) 08/07/17 05:00 Urine Source MIDSTREAM 08/05/17 16:35 Urine Color YELLOW 08/05/17 16:35 Urine Clarity CLOUDY (CLEAR) 08/05/17 16:35 Urine pH 5.5 (4.6 - 8.0) 08/05/17 16:35 Ur Specific [place] 1.015 (1.005-1.030) 08/05/17 16:35 Urine Protein NEGATIVE mg/dL (NEGATIVE) 08/05/17 16:35 Urine Glucose (UA) NEGATIVE mg/dL (NEGATIVE) 08/05/17 16:35 Urine Ketones NEGATIVE mg/dL (NEGATIVE) 08/05/17 16:35 Urine Blood LARGE (NEGATIVE) H 08/05/17 16:35 Urine Nitrate NEGATIVE (NEGATIVE) 08/05/17 16:35 Urine Bilirubin NEGATIVE (NEGATIVE) 08/05/17 16:35 Urine Urobilinogen 0.2 E.U./dL (0.2 - 1.0) 08/05/17 16:35 Ur Leukocyte Esterase LARGE (NEGATIVE) H 08/05/17 16:35 Urine RBC >100 /hpf (0-5) H 08/05/17 16:35 Urine WBC 10-25 /hpf (0-5) H 08/05/17 16:35 Ur Epithelial Cells FEW /lpf (FEW) 08/05/17 16:35 Urine Bacteria 1+ /hpf (NONE SEEN) H 08/05/17 16:35 - Physical Exam Vitals and I&O: Vital Signs Temp 97.6 F 08/08/17 20:00 Pulse 89 08/08/17 20:00 Resp 18 08/08/17 20:00 BP 96/54 08/08/17 20:00 Pulse Ox 97 08/08/17 20:00 Intake & Output 08/08/17 08/08/17 08/09/17 06:59 18:59 06:59 Intake Total 100 800 Output Total 900 950 Balance -800 -150 Weight (lbs) 67.268 kg 67.268 kg Intake: Intake, IV Amount 100 200 Meropenem 1 gm In Sodium 100 200 Chloride 0.9% 100 ml @ 100 mls/hr IV Q8H [facility] Rx# :[id number] Oral 600 Output: Urine 900 950 Other: # Bowel Movements 0 0 Weight Source Bedscale Bedscale Active Medications: Current Medications Acetaminophen (Tylenol) 650 mg PO Q6HR PRN PRN Reason: PAIN Stop: 10/05/17 08:50 Albuterol Sulfate (Albuterol 2.5mg/3ml Neb Ud) 2.5 mg HHN Q4HRT YUDITH Stop: 10/05/17 10:59 Last Admin: 08/08/17 19:19 Dose: 2.5 mg Ascorbic Acid (Vitamin C) 500 mg PO BID YUDITH Stop: 10/05/17 08:59 Last Admin: 08/08/17 17:24 Dose: 500 mg Aspirin (Aspirin Chewable) 81 mg PO DAILY YUDITH Stop: 10/05/17 08:59 Last Admin: 08/08/17 08:50 Dose: 81 mg Atorvastatin Calcium (Lipitor) 20 mg PO DAILY YUDITH Stop: 10/05/17 08:59 Last Admin: 08/08/17 08:50 Dose: 20 mg Bisacodyl (Dulcolax 10 Mg Supp) 10 mg RC DAILY PRN PRN Reason: Constipation Stop: 10/05/17 08:50 Carbidopa/Levodopa (Sinemet 25mg-100 Mg) 2 tab PO TID YUDITH Stop: 10/05/17 09:59 Last Admin: 08/08/17 21:19 Dose: 2 tab Carbidopa/Levodopa (Sinemet 25mg-100 Mg) 1 tab PO HS YUDITH Stop: 10/05/17 20:59 Last Admin: 08/08/17 21:19 Dose: 1 tab Clopidogrel Bisulfate (Plavix) 75 mg PO DAILY YUDITH Stop: 10/05/17 08:59 Last Admin: 08/08/17 08:49 Dose: 75 mg Docusate Sodium (Colace) 100 mg PO BID YUDITH Stop: 10/05/17 08:59 Last Admin: 08/08/17 17:24 Dose: 100 mg Ferrous Sulfate (Iron) 325 mg PO BID YUDITH Stop: 10/05/17 09:59 Last Admin: 08/08/17 17:24 Dose: 325 mg Fluconazole (Diflucan) 100 mg PO DAILY YUDITH Stop: 10/07/17 08:59 Last Admin: 08/08/17 08:49 Dose: 100 mg Furosemide (Lasix) 40 mg PO DAILY YUDITH Stop: 10/05/17 08:59 Last Admin: 08/08/17 08:49 Dose: 40 mg Meropenem 1 gm/ Sodium (Chloride) 100 mls @ 100 mls/hr IV Q8H YUDITH Stop: 10/06/17 00:00 Last Admin: 08/08/17 23:26 Dose: 100 mls/hr Ipratropium [place] (Atrovent Neb 0.5mg/2.5ml) 0.5 mg HHN Q4HRT YUDITH Stop: 10/05/17 10:59 Last Admin: 08/08/17 19:21 Dose: 0.5 mg Lactobacillus Rhamnosus (Culturelle 15b) 1 each PO DAILY YUDITH Stop: 10/07/17 08:59 Last Admin: 08/08/17 08:53 Dose: 1 each Lisinopril (Zestril) 20 mg PO BID YUDITH Stop: 10/05/17 08:59 Last Admin: 08/08/17 17:26 Dose: Not Given Metoprolol Tartrate (Lopressor) 50 mg PO BID YUDITH Stop: 10/05/17 08:59 Last Admin: 08/08/17 17:26 Dose: Not Given Miscellaneous (Vte Chemical Prophylaxis Screen/ Admission) 1 [facility] PRN PRN PRN Reason: PROTOCOL Stop: 10/05/17 09:52 Miscellaneous (Probiotic Screen) 1 [facility] PRN PRN PRN Reason: PROTOCOL Stop: 10/07/17 08:59 Multivitamins/Vitamin C (Theragran) 1 tab PO DAILY YUDITH Stop: 10/05/17 09:59 Last Admin: 08/08/17 08:48 Dose: 1 tab Pantoprazole Sodium (Protonix) 40 mg PO QDAC YUDITH Stop: 10/05/17 08:59 Last Admin: 08/08/17 06:47 Dose: 40 mg Tramadol HCl (Ultram) 50 mg PO QPM YUDITH Stop: 10/05/17 16:59 Last Admin: 08/08/17 17:24 Dose: 50 mg General: no acute distress, well developed HEENT: atraumatic, normocephalic, PERRLA Neck: supple, thyromegaly Cardiovascular: S1S2, regular Lungs: clear to auscultation bilaterally, clear to percussion Abdomen: soft, no tender, no mass, no hepatomegaly, no splenomegaly, no ascites Extremities: no cyanosis, no clubbing Neurological: awake, alert Skin: intact - Procedures Procedures: Procedures Procedure Code Date BLOOD TRANSFUSION SERVICE 76020 08/03/98 CATARAC PHACOEMULS/ASPIR 13.41 02/17/10 CATARACT SURG W/IOL 1 STAGE 23628 02/17/10 CLOSED ENDOSCOPIC BIOPSY OF LARGE INTESTINE 45.25 08/03/98 COLONOSCOPY AND BIOPSY 67288 08/03/98 EGD BIOPSY SINGLE/MULTIPLE 74193 08/03/98 ESOPHAGOGASTRODUODENOSCOPY [EGD] W/CLOSED BIOPSY 45.16 08/03/98 INSERT LENS AT CATAR EXT 13.71 02/17/10 PACKED CELL TRANSFUSION 99.04 08/03/98 Infectious Disease Assmt/Plan - Problem List Patient Problems: All Active Problems RECURRENT AND UNRESOLVING UTI (Acute) - Assessment Assessment: candiduria. - Plan Plan: Cont meropenem. continue diflucan.
[2017-08-09] MEDS: Pantoprazole 40 mg EC Tab PO SCH (06:42)
[2017-08-09] MEDS: Ipratropium Neb 0.5 mg/2.5 mL UD HHN SCH ×3 (07:12→14:40)
[2017-08-09] MEDS: Albuterol Nebulizer 2.5mg/3mL HHN SCH ×3 (07:12→14:40)
--- NOTE | 2017-08-09 07:19 | Progress Notes ---
DATE: 08/08/2017 MEDICAL PROGRESS NOTE SUBJECTIVE: The patient seen and examined. The patient is lying in the bed. The patient denies any chest pain, shortness of palpitation, dizziness, or nausea. PHYSICAL EXAMINATION: VITAL SIGNS: Temperature 97.2, pulse 80, respiratory rate 18, and blood pressure 101/65. HEENT: No facial asymmetry. NECK: Supple, no JVD. HEART: Regular. CHEST: Lungs equal in expansion, no wheezing, no crackles. ABDOMEN: Soft. No guarding, no rigidity. Bowel sounds are present. EXTREMITIES: No edema. Spasticity of upper and lower extremity noted. LABORATORY DATA: Urine culture positive for yeast, 30,000 colonies. Blood cultures are negative. Medication on admission record is reviewed. CLINICAL IMPRESSION: 1. Naomi urinary tract infection. 2. Neurogenic bladder. 3. Hypertension. 4. Parkinson disease. 5. Degenerative joint disease. 6. Debility. 7. High risk for fall. 8. History of chronic obstructive pulmonary disease. 9. Coronary artery disease. PLAN: 1. IV antibiotic. 2. General nursing care. 3. Urology and Infectious Disease followup. 4. Medication management. 5. Symptoms management. 6. Follow workday consultant's recommendation. 7. Care plan reviewed and discussed with staff. JOB# [id number]
[2017-08-09] MEDS: Lactobacillus Rhamnosus GG 15 Billion CFU CAP.SPRINK PO SCH (09:28)
[2017-08-09] MEDS: Atorvastatin Calcium 10 MG TAB PO SCH (09:28)
[2017-08-09] MEDS: Meropenem 1 GM in Sodium Chloride 0.9% 100 ML IV SCH (09:28)
[2017-08-09] MEDS: Ferrous Sulfate 325 MG TAB PO SCH (09:29)
[2017-08-09] MEDS: Multivitamin Tab PO SCH (09:29)
[2017-08-09] MEDS: Aspirin 81mg Chewable Tab PO SCH (09:30)
--- NOTE | 2017-08-09 12:11 | Infectious Disease Prog Note ---
Infectious Disease Subjective - Review of Systems Service Date: 08/09/17 Subjective: no new change, no fever. Infectious Disease Objective - Results Result Diagrams: 08/07/17 05:00 08/07/17 05:00 Recent Labs: Laboratory Last Values WBC 7.9 Th/cmm (4.8-10.8) 08/07/17 05:00 RBC 3.62 Mil/cmm (3.80-5.80) L 08/07/17 05:00 Hgb 10.9 gm/dL (12-16) L 08/07/17 05:00 Hct 32.5 % (41.0-60) L 08/07/17 05:00 MCV 89.7 fl (80-99) 08/07/17 05:00 MCH 30.2 pg (27.0-31.0) 08/07/17 05:00 MCHC Differential 33.6 pg (28.0-36.0) 08/07/17 05:00 RDW 13.3 % (11.5-20.0) 08/07/17 05:00 Plt Count 227 Th/cmm (150-400) 08/07/17 05:00 MPV 7.5 fl 08/07/17 05:00 Neutrophils % 69.2 % (40.0-80.0) 08/07/17 05:00 Lymphocytes % 18.8 % (20.0-50.0) L 08/07/17 05:00 Monocytes % 9.6 % (2.0-10.0) 08/07/17 05:00 Eosinophils % 2.3 % (0.0-5.0) 08/07/17 05:00 Basophils % 0.1 % (0.0-2.0) 08/07/17 05:00 Plt Count 246 Th/cmm (150-750) 08/06/17 09:05 PT 10.9 SECONDS (9.5-11.5) 08/06/17 09:05 INR 1.05 (0.5-1.4) 08/06/17 09:05 PTT (Actin FS) 27.4 SECONDS (26.0-38.0) 08/06/17 09:05 Fibrinogen 256.0 mg/dL (200.0-400.0) 08/06/17 09:05 D-Dimer 442 ng/mL (100-400) H 08/06/17 09:05 Sodium 140 mEq/L (136-145) 08/07/17 05:00 Potassium 4.2 mEq/L (3.5-5.1) 08/07/17 05:00 Chloride 105 mEq/L (98-107) 08/07/17 05:00 Carbon Dioxide 26.4 mEq/L (21.0-31.0) 08/07/17 05:00 Anion Gap 12.8 (7.0-16.0) 08/07/17 05:00 BUN 22 mg/dL (7-25) 08/07/17 05:00 Creatinine 1.2 mg/dL (0.7-1.3) 08/07/17 05:00 Est GFR ( Amer) TNP 08/07/17 05:00 Est GFR (Non-Af Amer) TNP 08/07/17 05:00 BUN/Creatinine Ratio 18.3 08/07/17 05:00 Glucose 123 mg/dL (70-105) H 08/07/17 05:00 Whole Bld Lactic Acid 1.28 mmol/L (0.60-1.99) 08/05/17 18:22 Calcium 9.2 mg/dL (8.6-10.3) 08/07/17 05:00 Total Bilirubin 0.4 mg/dL (0.3-1.0) 08/07/17 05:00 AST 9 U/L (13-39) L 08/07/17 05:00 ALT 13 U/L (7-52) 08/07/17 05:00 Alkaline Phosphatase 68 U/L (34-104) 08/07/17 05:00 Creatine Kinase 58 U/L (30-223) 08/05/17 16:20 Troponin I 0.01 ng/mL (0.01-0.05) 08/05/17 16:20 Total Protein 7.0 gm/dL (6.0-8.3) 08/07/17 05:00 Albumin 3.9 gm/dL (4.2-5.5) L 08/07/17 05:00 Globulin 3.1 gm/dL 08/07/17 05:00 Albumin/Globulin Ratio 1.3 (1.0-1.8) 08/07/17 05:00 Urine Source MIDSTREAM 04/12/18 16:35 Urine Color YELLOW 08/05/17 16:35 Urine Clarity CLOUDY (CLEAR) 08/05/17 16:35 Urine pH 5.5 (4.6 - 8.0) 08/05/17 16:35 Ur Specific [place] 1.015 (1.005-1.030) 08/05/17 16:35 Urine Protein NEGATIVE mg/dL (NEGATIVE) 08/05/17 16:35 Urine Glucose (UA) NEGATIVE mg/dL (NEGATIVE) 08/05/17 16:35 Urine Ketones NEGATIVE mg/dL (NEGATIVE) 08/05/17 16:35 Urine Blood LARGE (NEGATIVE) H 08/05/17 16:35 Urine Nitrate NEGATIVE (NEGATIVE) 08/05/17 16:35 Urine Bilirubin NEGATIVE (NEGATIVE) 08/05/17 16:35 Urine Urobilinogen 0.2 E.U./dL (0.2 - 1.0) 08/05/17 16:35 Ur Leukocyte Esterase LARGE (NEGATIVE) H 08/05/17 16:35 Urine RBC >100 /hpf (0-5) H 08/05/17 16:35 Urine WBC 10-25 /hpf (0-5) H 08/05/17 16:35 Ur Epithelial Cells FEW /lpf (FEW) 08/05/17 16:35 Urine Bacteria 1+ /hpf (NONE SEEN) H 08/05/17 16:35 - Physical Exam Vitals and I&O: Vital Signs Temp 97.5 F 08/09/17 08:09 Pulse 90 08/09/17 10:58 Resp 16 08/09/17 10:58 BP 121/65 08/09/17 09:30 Pulse Ox 98 08/09/17 10:58 Intake & Output 08/08/17 08/09/17 08/09/17 18:59 06:59 18:59 Intake Total 800 100 Output Total 950 Balance -150 100 Weight (lbs) 67.268 kg 67.132 kg Intake: Intake, IV Amount 200 100 Meropenem 1 gm In Sodium 200 100 Chloride 0.9% 100 ml @ 100 mls/hr IV Q8H [facility] Rx# :[id number] Oral 600 Output: Urine 950 Other: # Bowel Movements 0 Weight Source Bedscale Bedscale Active Medications: Current Medications Acetaminophen (Tylenol) 650 mg PO Q6HR PRN PRN Reason: PAIN Stop: 10/05/17 08:50 Albuterol Sulfate (Albuterol 2.5mg/3ml Neb Ud) 2.5 mg HHN Q4HRT YUDITH Stop: 10/05/17 10:59 Last Admin: 08/09/17 10:55 Dose: 2.5 mg Ascorbic Acid (Vitamin C) 500 mg PO BID YUDITH Stop: 10/05/17 08:59 Last Admin: 08/09/17 09:28 Dose: 500 mg Aspirin (Aspirin Chewable) 81 mg PO DAILY YUDITH Stop: 10/05/17 08:59 Last Admin: 08/09/17 09:30 Dose: 81 mg Atorvastatin Calcium (Lipitor) 20 mg PO DAILY YUDITH Stop: 10/05/17 08:59 Last Admin: 08/09/17 09:28 Dose: 20 mg Bisacodyl (Dulcolax 10 Mg Supp) 10 mg RC DAILY PRN PRN Reason: Constipation Stop: 10/05/17 08:50 Carbidopa/Levodopa (Sinemet 25mg-100 Mg) 2 tab PO TID YUDITH Stop: 10/05/17 09:59 Last Admin: 08/09/17 09:29 Dose: 2 tab Carbidopa/Levodopa (Sinemet 25mg-100 Mg) 1 tab PO HS YUDITH Stop: 10/05/17 20:59 Last Admin: 08/08/17 21:19 Dose: 1 tab Clopidogrel Bisulfate (Plavix) 75 mg PO DAILY YUDITH Stop: 10/05/17 08:59 Last Admin: 08/09/17 09:30 Dose: 75 mg Docusate Sodium (Colace) 100 mg PO BID YUDITH Stop: 10/05/17 08:59 Last Admin: 08/09/17 09:30 Dose: 100 mg Ferrous Sulfate (Iron) 325 mg PO BID YUDITH Stop: 10/05/17 09:59 Last Admin: 08/09/17 09:29 Dose: 325 mg Fluconazole (Diflucan) 100 mg PO DAILY YUDITH Stop: 10/07/17 08:59 Last Admin: 08/09/17 09:29 Dose: 100 mg Furosemide (Lasix) 40 mg PO DAILY YUDITH Stop: 10/05/17 08:59 Last Admin: 08/09/17 09:29 Dose: 40 mg Meropenem 1 gm/ Sodium (Chloride) 100 mls @ 100 mls/hr IV Q8H YUDITH Stop: 10/06/17 00:00 Last Admin: 08/09/17 09:28 Dose: 100 mls/hr Ipratropium [place] (Atrovent Neb 0.5mg/2.5ml) 0.5 mg HHN Q4HRT YUDITH Stop: 10/05/17 10:59 Last Admin: 08/09/17 10:56 Dose: 0.5 mg Lactobacillus Rhamnosus (Culturelle 15b) 1 each PO DAILY YUDITH Stop: 10/07/17 08:59 Last Admin: 08/09/17 09:28 Dose: 1 each Lisinopril (Zestril) 20 mg PO BID YUDITH Stop: 10/05/17 08:59 Last Admin: 08/09/17 09:30 Dose: 20 mg Metoprolol Tartrate (Lopressor) 50 mg PO BID YUDITH Stop: 10/05/17 08:59 Last Admin: 08/09/17 09:30 Dose: 50 mg Miscellaneous (Vte Chemical Prophylaxis Screen/ Admission) 1 [facility] PRN PRN PRN Reason: PROTOCOL Stop: 10/05/17 09:52 Miscellaneous (Probiotic Screen) 1 [facility] PRN PRN PRN Reason: PROTOCOL Stop: 10/07/17 08:59 Multivitamins/Vitamin C (Theragran) 1 tab PO DAILY YUDITH Stop: 10/05/17 09:59 Last Admin: 08/09/17 09:29 Dose: 1 tab Pantoprazole Sodium (Protonix) 40 mg PO QDAC YUDITH Stop: 10/05/17 08:59 Last Admin: 08/09/17 06:42 Dose: 40 mg Tramadol HCl (Ultram) 50 mg PO QPM YUDITH Stop: 10/05/17 16:59 Last Admin: 08/08/17 17:24 Dose: 50 mg - Procedures Procedures: Procedures Procedure Code Date BLOOD TRANSFUSION SERVICE 72212 08/03/98 CATARAC PHACOEMULS/ASPIR 13.41 02/17/10 CATARACT SURG W/IOL 1 STAGE 08885 02/17/10 CLOSED ENDOSCOPIC BIOPSY OF LARGE INTESTINE 45.25 08/03/98 COLONOSCOPY AND BIOPSY 15894 08/03/98 EGD BIOPSY SINGLE/MULTIPLE 89237 08/03/98 ESOPHAGOGASTRODUODENOSCOPY [EGD] W/CLOSED BIOPSY 45.16 08/03/98 INSERT LENS AT CATAR EXT 13.71 02/17/10 PACKED CELL TRANSFUSION 99.04 08/03/98 Infectious Disease Assmt/Plan - Problem List Patient Problems: All Active Problems RECURRENT AND UNRESOLVING UTI (Acute) - Assessment Assessment: 1. UTI. ESBL + klebsiella. 2. Dementia. 3. Neurogenic bladder. 4. Parkinson's disease. 5. HTN. 6. H/o CAD. 7. GERD. 8. Renal insuffciency. Improving. 9. Lactic acidosis ? renal failure. 10. Dementia. 11. candiduria. - Plan Plan: DC meropenem. Continue diflucan for 7 days.
--- NOTE | 2017-08-09 17:41 | Discharge Summary ---
DATE OF DISCHARGE: 08/09/2017 PRINCIPAL DIAGNOSES: 1. Recurrent urinary tract infection secondary to neurogenic bladder. 2. Naomi urea. 3. Chronic obstructive pulmonary disease. 4. Coronary artery disease. 5. Degenerative joint disease. 6. Parkinson's disease. 7. Hypertension. 8. High risk for fall. 9. Degenerative joint disease. 10. Decline in self-care mobility. BRIEF STATEMENT FOR THE REASON FOR ADMISSION: A 77-year-old [place] male, resident of assisted, sent to Emergency Room for evaluation of hematuria, increasing lethargy, and cough. The patient was seen by ER and subsequently admitted. Please refer to my dictated H and P for further information. HOSPITAL COURSE: The patient was admitted to Med/Surg floor. IV antibiotic was started. Infectious and urology consultation requested. Appropriate home medicine was reconciliated. Blood cultures and urine cultures were obtained. The patient did have negative blood cultures where urine culture did reveal yeast species. The patient was placed on IV Diflucan as well. The patient was seen by Dr. Greenberg, urologist. According to his clinical opinion, the patient has neurogenic bladder. Recommended that the patient should be treated with indwelling Jensen catheter as well as the bladder irrigation daily on ongoing basis and change the Jensen catheter more often every 2-3 weeks rather than month. The patient was also placed on his home medication as well. The patient was improving, so decision was made that the patient should be transferred back to [facility]. Renal ultrasound was done, which revealed bilateral renal cysts, but no hydronephrosis. At the time of discharge, all of his meds were reconciled. JOB# [id number]
--- NOTE | 2017-08-09 20:31 | Progress Notes ---
DATE: 08/09/2017 SUBJECTIVE: The patient seen and examined. The patient is lying in the bed. The patient has remained hemodynamically stable. PHYSICAL EXAMINATION: VITAL SIGNS: Temperature 97.5, pulse 87, respiratory rate 18, and blood pressure 121/65. HEENT: No facial asymmetry. NECK: Supple, no JVD. HEART: Regular. CHEST: Lung equal in expansion, no expiratory wheezing. ABDOMEN: Soft. No guarding, no rigidity. Bowel sounds are present. No palpable mass. EXTREMITIES: No edema. NEUROLOGIC: Evidence of spasticity noted. AVAILABLE DIAGNOSTIC DATA: None for my review. CLINICAL IMPRESSION: 1. Recurrent urinary tract infection. 2. Neurogenic bladder. 3. Candiduria. 4. Hypertension. 5. Parkinson's disease. 6. Chronic obstructive pulmonary disease. 7. Coronary artery disease. 8. Degenerative joint disease. 9. High risk for fall. 10. Hyperlipidemia. PLAN: 1. The patient will be discharged to retirement with p.o. Diflucan. 2. Outpatient followup by Urology. 3. Continue other medicine as prescribed in retirement. 4. The patient will be followed by myself. 5. At the time of discharge, all of his meds are reconciled. JOB# [id number]
== END 2017-08-09 15:31 | DRG 698 ==
LOC: ER 15:40 → MSI 18:48
PROVIDERS: ADMIT Internal Medicine; ATTEND Internal Medicine
DX: T83.511A Infection and inflammatory reaction due to indwelling urethral catheter, initial encounter (principal); G93.40 Encephalopathy, unspecified; E87.1 Hypo-osmolality and hyponatremia; J44.9 Chronic obstructive pulmonary disease, unspecified; I25.10 Atherosclerotic heart disease of native coronary artery without angina pectoris; I10 Essential (primary) hypertension; E78.5 Hyperlipidemia, unspecified; N31.9 Neuromuscular dysfunction of bladder, unspecified; M19.90 Unspecified osteoarthritis, unspecified site; Z66 Do not resuscitate; K21.9 Gastro-esophageal reflux disease without esophagitis; G20 Parkinson's disease; F03.90 Unspecified dementia, unspecified severity, without behavioral disturbance, psychotic disturbance, mood disturbance, and anxiety; N30.91 Cystitis, unspecified with hematuria; B96.1 Klebsiella pneumoniae [K. pneumoniae] as the cause of diseases classified elsewhere; E86.0 Dehydration; B37.9 Candidiasis, unspecified; D64.9 Anemia, unspecified; Z16.12 Extended spectrum beta lactamase (ESBL) resistance; N28.9 Disorder of kidney and ureter, unspecified; B88.8 Other specified infestations; Z91.81 History of falling; Z23 Encounter for immunization; Z83.3 Family history of diabetes mellitus; Z82.49 Family history of ischemic heart disease and other diseases of the circulatory system; Z79.82 Long term (current) use of aspirin; Z79.899 Other long term (current) drug therapy; Y92.89 Other specified places as the place of occurrence of the external cause; Y83.8 Other surgical procedures as the cause of abnormal reaction of the patient, or of later complication, without mention of misadventure at the time of the procedure
CPT/HCPCS: 36415-UA; 71045-TC; 76770-TC; 80053-TC; 81001-TC; 82550-TC; 83605; 84484-TC; 85025-TC; 85049-TC; 85379-TC; 85384-TC; 85610-TC; 85730-TC; 87086-90; 90779; 93005; 94664; 94760; 97530; A4217; J0696; J1335; J2185; J2543; J7030; J7040; J7613; X3904; Z7610

== ENCOUNTER 2017-12-11 13:08 | Inpatient (IN) | payer MEDICAID, MEDICARE ==
[2017-12-11 13:52] LABS: % BASOPHILS 0.4 % (0.0-2.0); % EOSINOPHILS 3.4 % (0.0-5.0); % MONOCYTES 9.5 % (2.0-10.0); % NEUTROPHILS 72.7 % (40.0-80.0); EOSINOPHILE ABSOLUTE 0.3 Th/cmm (0.1-0.4); HEMATOCRIT 29.6 % (41.0-60); MEAN CELL VOLUME 91.5 fl (80-99); MEAN CORPUSCULAR HEMOGLOBIN 30.9 pg (27.0-31.0); MEAN CORPUSCULAR HGB CONC 33.8 pg (28.0-36.0); MEAN PLATELET VOLUME 7.1 fl; MONOCYTE ABSOLUTE 0.7 Th/cmm (0.3-1.0); NEUTROPHILE ABSOLUTE 5.5 Th/cmm (1.8-8.0); PLATELET COUNT 220 Th/cmm (150-400); RED BLOOD COUNT 3.23 Mil/cmm (3.80-5.80); RED CELL DISTRIBUTION WIDTH 13.2 % (11.5-20.0); WHITE BLOOD COUNT 7.5 Th/cmm (4.8-10.8)
--- NOTE | 2017-12-11 13:53 | ED Physician Chart ---
ED Chief Complaint/HPI - Patient Information Date Seen:: 12/11/17 Time Seen:: 13:28 Chief Complaint:: deep cough History of Present Illness:: this is a 77 yo male retirement patient sent here to evaluate his cough and periods of difficulty breathing. He has multiple chronic illnesses, copd,heart disease, parkinson's hypertension,arthritis and mental slowness. Allergies:: Allergies Allergy/AdvReac Type Severity Reaction Status Date / Time No Known Allergies Allergy Verified 08/05/17 15:48 Vitals:: Vital Signs - 8 hr 12/11/17 13:19 Temp 98.8 F HR 93 RR 23 BP 107/54 O2 Sat % 98 Historian:: Family Member, Medical Records Review:: Nurse's Note Reviewed, Transfer documents Reviewed ED Review of Systems - Review of Systems General/Constitutional: No fever, No chills, No weight loss, No weakness, No diaphoresis, No edema, No loss of appetite, Other (THIS PATIENT CANNOT GIVE AN ACCURATE REVIEW OF SYSTEMS) Skin: No skin lesions, No rash, No bruising Head: No headache, No light-headedness Eyes: No loss of vision, No pain, No diplopia ENT: No earache, No nasal drainage, No sore throat, No tinnitus Neck: No neck pain, No swelling, No thyromegaly, No stiffness, No mass noted Cardio Vascular: No chest pain, No palpitations, No PND, No orthopnea, No edema Pulmonary: No SOB, No cough, No sputum, No wheezing GI: No nausea, No vomiting, No diarrhea, No pain, No melena, No hematochezia, No constipation, No hematemesis G/U: No dysuria, No frequency, No hematuria Musculoskeletal: No bone or joint pain, No back pain, No muscle pain Endocrine: No polyuria, No polydipsia Psychiatric: No prior psych history, No depression, No anxiety, No suicidal ideation Hematopoietic: No bruising, No lymphadenopathy Allergic/Immuno: No urticaria, No angioedema Neurological: No syncope, No focal symptoms, No weakness, No paresthesia, No headache, No seizure, No dizziness, No confusion, No vertigo ED Past Medical History - Past Medical History Obtainable: Yes Past Medical History: HTN, CAD, Asthma/COPD, Arthritis, Dementia Family History: None Social History: Non Smoker, No Alcohol, No Drug Use, , Care Facility Surgical History: None Psychiatricy History: Dementia Family Medical History - Family Member Mother History Unknown: Yes ED Physical Exam - Physical Examination General/Constitutional: Awake, Well-developed, well-nourished, Alert, No distress, GCS 15, Non-toxic appearing, Ambulatory Other Gen/Cons comments:: SLUGGISH RESPONSE VERBALLY AND IN AND OUT MENTALLY. Head: Atraumatic Eyes: Lids, conjuctiva normal, PERRL, EOMI Skin: Nl inspection, No rash, No skin lesions, No ecchymosis, Well hydrated, No lymphadenopathy ENMT: External ears, nose nl, Nasal exam nl, Lips, teeth, gums nl Neck: Nontender, Full ROM w/o pain, No JVD, No nuchal rigidity, No bruit, No mass, No stridor Respiratory: Nl effort/Exclusion, Clear to Auscultation, No Wheeze/Rhonchi/Rales Cardio Vascular: RRR, No murmur, gallop, rubs, NL S1 S2 GI: No tenderness/rebounding/guarding, No organomegaly, No hernia, Normal BS's, Nondistended, No mass/bruits, No McBurney tenderness : No CVA tenderness Extremities: No tenderness or effusion, Full ROM, normal strength in all extremities, No edema, Normal digits & nails Other Extremities comments:: BOTH LOWER EXTREMITIES ARE STIFF AND SPASTIC WITH NO EDEMA Neuro/Psych: Alert/oriented (NOT ORIENTED TIMES THREE), DTR's symmetric, Normal sensory exam, Normal motor strength, Judgement/insight normal (POOR INSIGHT), Mood normal, Normal gait, No focal deficits Misc: Normal back, No paraspinal tenderness ED Labs/Radiology/EKG Results - Lab Results Results: Abnormal Lab Results 12/11/17 12/11/17 12/11/17 13:36 13:36 13:36 WBC 7.5 RBC 3.23 L Hgb 10.0 L Hct 29.6 L MCV 91.5 MCH 30.9 MCHC Differential 33.8 RDW 13.2 Plt Count 220 MPV 7.1 Neutrophils % 72.7 Lymphocytes % 14.0 L Monocytes % 9.5 Eosinophils % 3.4 Basophils % 0.4 PT 9.4 L INR 0.90 D-Dimer Sodium 140 Potassium 4.9 Chloride 112 H Carbon Dioxide 19.1 L Anion Gap 13.8 BUN 49 H Creatinine 1.8 H Est GFR ( Amer) TNP Est GFR (Non-Af Amer) TNP BUN/Creatinine Ratio 27.2 Glucose 100 Whole Bld Lactic Acid Calcium 9.5 Total Bilirubin 0.3 AST 8 L ALT 6 L Alkaline Phosphatase 72 Troponin I B-Natriuretic Peptide Total Protein 7.8 Albumin 4.2 Globulin 3.6 Albumin/Globulin Ratio 1.2 TSH Urine Source Urine Color Urine Clarity Urine pH Ur Specific [place] Urine Protein Urine Glucose (UA) Urine Ketones Urine Blood Urine Nitrate Urine Bilirubin Urine Urobilinogen Ur Leukocyte Esterase Urine RBC Urine WBC Ur Epithelial Cells Urine Bacteria 12/11/17 12/11/17 12/11/17 13:36 13:36 13:36 WBC RBC Hgb Hct MCV MCH MCHC Differential RDW Plt Count MPV Neutrophils % Lymphocytes % Monocytes % Eosinophils % Basophils % PT INR D-Dimer Sodium Potassium Chloride Carbon Dioxide Anion Gap BUN Creatinine Est GFR ( Amer) Est GFR (Non-Af Amer) BUN/Creatinine Ratio Glucose Whole Bld Lactic Acid Calcium Total Bilirubin AST ALT Alkaline Phosphatase Troponin I 0.01 B-Natriuretic Peptide 55.8 Total Protein Albumin Globulin Albumin/Globulin Ratio TSH 1.02 Urine Source Urine Color Urine Clarity Urine pH Ur Specific [place] Urine Protein Urine Glucose (UA) Urine Ketones Urine Blood Urine Nitrate Urine Bilirubin Urine Urobilinogen Ur Leukocyte Esterase Urine RBC Urine WBC Ur Epithelial Cells Urine Bacteria 12/11/17 12/11/17 12/11/17 13:36 13:36 13:40 WBC RBC Hgb Hct MCV MCH MCHC Differential RDW Plt Count MPV Neutrophils % Lymphocytes % Monocytes % Eosinophils % Basophils % PT INR D-Dimer 708 H Sodium Potassium Chloride Carbon Dioxide Anion Gap BUN Creatinine Est GFR ( Amer) Est GFR (Non-Af Amer) BUN/Creatinine Ratio Glucose Whole Bld Lactic Acid 1.58 Calcium Total Bilirubin AST ALT Alkaline Phosphatase Troponin I B-Natriuretic Peptide Total Protein Albumin Globulin Albumin/Globulin Ratio TSH Urine Source CLEAN C Urine Color YELLOW Urine Clarity TURBID Urine pH 5.5 Ur Specific [place] 1.015 Urine Protein NEGATIVE Urine Glucose (UA) NEGATIVE Urine Ketones NEGATIVE Urine Blood TRACE Urine Nitrate NEGATIVE Urine Bilirubin NEGATIVE Urine Urobilinogen 0.2 Ur Leukocyte Esterase LARGE H Urine RBC 0-2 H Urine WBC 50-100 H Ur Epithelial Cells MODERATE Urine Bacteria MANY H - Radiology Results Results: chest ct scan = cm, dad assvd,hiatal hernia gallstones,renal cyst - EKG Interpretations EKG Time:: 13:32 Rate & Rhythm: RATE =91, SINUS Red Bud: RIGHT ED Assessment - Assessment General Assessment: copd, dehydration, urinary tract infection ED Septic Shock - . Is Septic Shock (SBP<90, OR Lactate>4 mmol\L) present?: No - <6hrs of presentation: Vital Signs: Vital Signs - 8 hr 12/11/17 13:19 Temp 98.8 F HR 93 RR 23 BP 107/54 O2 Sat % 98 ED Reassessment (Disposition) - Reassessment Reassessment Condition:: Improved - Diagnosis Diagnosis:: copd exacerbation dehydration urinary tract infection - Patient Disposition Discharge/Transfer:: Acute Care w/in this hosp Admitting Medical Physician:: Harris Yoder Condition at Disposition:: Unchanged
[2017-12-11 14:00] LABS: URINE SOURCE CLEAN C
[2017-12-11 14:00] LABS: INR 0.9 (0.5-1.4); PROTHROMBIN TIME (TEST) 9.4 SECONDS (9.5-11.5)
[2017-12-11 14:03] LABS: URINE BILIRUBIN NEGATIVE (NEGATIVE); URINE BLOOD TRACE (NEGATIVE); URINE GLUCOSE (UA) NEGATIVE (NEGATIVE); URINE KETONE NEGATIVE (NEGATIVE); URINE LEUKOCYTE ESTERASE LARGE (NEGATIVE); URINE MICROSCOPIC INDICATED? YES; URINE NITRATE NEGATIVE (NEGATIVE); URINE PH 5.5 (4.6 - 8.0); URINE PROTEIN NEGATIVE (NEGATIVE); URINE UROBILINOGEN 0.2 E.U./dL (0.2 - 1.0)
[2017-12-11 14:04] LABS: ALB/GLOB RATIO 1.2 (1.0-1.8); ALBUMIN 4.2 gm/dL (4.2-5.5); ALKALINE PHOSPHATASE 72 U/L (34-104); ANION GAP 13.8 (7.0-16.0); BILIRUBIN,TOTAL 0.3 mg/dL (0.3-1.0); BUN - UREA NITROGEN 49 mg/dL (7-25); CALCIUM SERUM 9.5 mg/dL (8.6-10.3); CARBON DIOXIDE 19.1 mEq/L (21.0-31.0); CHLORIDE 112 mEq/L (98-107); CREATININE - SERUM 1.8 mg/dL (0.7-1.3); GLUCOSE 100 mg/dL (70-105); POTASSIUM SERUM 4.9 mEq/L (3.5-5.1); SGOT 8 U/L (13-39); SGPT/ALT 6 U/L (7-52); SODIUM SERUM 140 mEq/L (136-145); TOTAL PROTEIN,SERUM 7.8 gm/dL (6.0-8.3)
[2017-12-11 14:07] LABS: URINE CLARITY TURBID (CLEAR); URINE COLOR YELLOW
[2017-12-11 14:10] LABS: URINE EPITHELIAL CELLS MODERATE /lpf (FEW); URINE RBC 0-2 /hpf (0-5); URINE WBC 50-100 /hpf (0-5)
[2017-12-11 14:11] LABS: URINE BACTERIA MANY /hpf (NONE SEEN)
[2017-12-11] MEDS ORDERED: Sodium Chloride 0.9% 1,000 ML IV ONE (14:44)
[2017-12-11] MEDS ORDERED: Albuterol/Ipratropium Neb 3 ML AERS HHN ONE ×2 (15:18→15:33)
[2017-12-11] MEDS ORDERED: methylPREDNISolone SS 40 mg Vial IV ONE (16:40)
[2017-12-11] MEDS ORDERED: cefTRIAXone 1 GM in Sodium Chloride 0.9% 50 ML IV SCH (16:40)
[2017-12-11] MEDS ORDERED: D5-0.45NS 1,000 ML IV SCH (16:40)
[2017-12-11] MEDS: Azithromycin 500 MG in Sodium Chloride 0.9% 250 ML IV SCH (17:25)
[2017-12-11] MEDS: D5-0.45NS 1,000 ML IV SCH (17:25)
[2017-12-11 18:57] VITALS: BP 112/55
[2017-12-12] MEDS: methylPREDNISolone SS 40 mg Vial IVP SCH ×4 (06:08→23:53)
[2017-12-12] MEDS: D5-0.45NS 1,000 ML IV SCH (08:36)
[2017-12-12] MEDS: Albuterol/Ipratropium Neb 3 ML AERS HHN PRN (08:45)
[2017-12-12] MEDS ORDERED: methylPREDNISolone SS 40 mg Vial IVP SCH (09:00)
--- NOTE | 2017-12-12 09:53 | Diagnostic Imaging Report ---
Head CT without intravenous contrast Indication: CVA Comparison: None Technique: Axial images were obtained from the vertex to the skull base without IV contrast. Coronal reconstructions were made. Total DLP: 627, [id number] FINDINGS: Images of the brain obtained without contrast demonstrate no evidence of an acute hemorrhage. Atrophy is noted. The guerra-white matter differentiation is preserved. No mass effect or midline shift. The ventricles and basal cisterns are patent. No evidence of a skull fracture or focal soft tissue swelling. The paranasal sinuses demonstrate mild mucosal thickening. IMPRESSION: No CT evidence of an acute intracranial abnormality. Given clinical history, MRI follow-up may also be obtained for further assessment. Atrophy.
--- NOTE | 2017-12-12 10:06 | Diagnostic Imaging Report ---
CT Chest without IV contrast HISTORY: Chest congestion and shortness of breath COMPARISON: Chest x-ray on 08/06/2018. Technique: Axial images were obtained from the base of the neck to the upper abdomen without IV contrast. Reconstructions were made. Total DLP 290, CTD I 8.6 Findings: Evaluation of the mediastinum is limited due to lack of IV contrast. No evidence of mediastinal lymphadenopathy. Mild to moderate atherosclerotic vascular disease is noted with coronary artery calcifications. Heart size is mildly prominent. No aneurysm. No pericardial effusion identified. A small hiatal hernia is noted. Evaluation of the pulmonary parenchyma demonstrates chronic interstitial lung changes with hypoventilatory atelectatic changes and mild left basal passive atelectatic and consolidative changes. No pleural effusions identified. The upper abdomen demonstrates gallstones. Renal cysts are partially visualized, the largest measuring 2.2 cm of the left kidney. There is also a 1 cm high density left renal lesion. Degenerative changes of the spine are noted. There is a moderate likely chronic compression fracture of T12 vertebral body IMPRESSION: Chronic interstitial lung changes with left basal passive atelectasis versus infiltrate. Clinical correlation recommended. Mild cardiomegaly with atherosclerotic vascular disease and coronary artery calcifications Small hiatal hernia. Cholelithiasis. Renal cysts and additional 1 cm high density left renal lesion, possibly a hemorrhagic cyst. ultrasound further clarify Moderate chronic appearing compression deformity of T12.
[2017-12-12] MEDS ORDERED: Magnesium Hydroxide (MOM) 30 mL UDC PO PRN (11:27)
[2017-12-12] MEDS ORDERED: MYLANTA PO PRN (11:27)
[2017-12-12] MEDS ORDERED: Non-Formulary Item 1 EA (Atorvastatin Calcium [Lipitor] 20 MG) PO SCH (11:30)
[2017-12-12] MEDS ORDERED: Maalox 30 mL Cup PO PRN (11:43)
[2017-12-12] MEDS: Aspirin 81mg Chewable Tab PO SCH (12:51)
--- NOTE | 2017-12-12 13:00 | History & Physical ---
ADMIT DATE: 12/12/2017 PATIENT'S IDENTIFICATION: A 77-year-old male. CHIEF COMPLAINT: Sent to Emergency Room for increasing shortness of breath, cough, and congestion. HISTORY OF PRESENT ILLNESS: A 77-year-old resident of retirement, has a diagnosis of Parkinson's disease, hypertension, DJD, BPH, history of CVA, COPD, neurogenic bladder, started to have productive cough and congestion in retirement for almost a week. The patient was treated with symptoms status symptomatic therapy. The patient was not getting better. Chest x-ray was done, which revealed bilateral infiltrate. The patient was sent to Emergency Room since the patient was not improving and having productive cough. The patient was worked up in the Emergency Room and subsequently advised to be admitted after CT scan of the chest was reported abnormal. The patient speaks [place] only. mirror maker has been used. The patient's at bedside. PAST MEDICAL HISTORY: Remarkable for: 1. Parkinson's disease. 2. Hypertension. 3. Coronary artery disease. 4. DJD. 5. GERD. 6. COPD. 7. Neurogenic bladder. MEDICATIONS: At the retirement has been reviewed and reconciled appropriately. ALLERGIES: None. SOCIAL HISTORY: The patient lives in retirement. No history of smoking cigarette, alcohol, or drug use. FAMILY MEDICAL HISTORY: Remarkable for hypertension. REVIEW OF SYSTEMS: The patient denies any fever or chills. Denies any chest pain. Has productive cough and congestion and shortness of breath, but denies any paroxysmal nocturnal dyspnea. Denies any abdominal pain. Denies any hematemesis. Denies any hematuria, hematochezia, melena. No seizure or syncopal episode. PHYSICAL EXAMINATION: GENERAL: Alert, awake, lying in the bed. VITAL SIGNS: Temperature 98.5, pulse 98, respiratory rate 18, blood pressure 108/49. HEENT: Normocephalic, atraumatic. Extraocular muscles are intact. Tongue more pink and coated. Oropharynx congested. Nasal mucosa congested. Mask-like face noted. NECK: Supple, no JVD. HEART: Both heart sounds are regular. CHEST: Lungs equal in expansion with expiratory wheezing throughout. ABDOMEN: Soft. No guarding or rigidity. Bowel sounds present. No palpable mass. EXTREMITIES: No edema. Peripheral pulses are +1. No calf tenderness noted. NEUROLOGIC: Alert, awake, follows commands, spasticity involving upper and lower extremity noted. AVAILABLE DIAGNOSTIC DATA: White count of 7.1, hemoglobin 10.0, platelet count of 220, BUN and creatinine is 49 and 1.8. Sodium 140, potassium 4.9, chloride 119, CO2 19, AST and ALT are normal. Troponin is negative. Urinalysis is remarkable for large amount of leukocyte esterase with many bacteria were noted. Chest CT was performed in the Emergency Room, which remarkable for chronic interstitial lung changes with left basilar passive atelectasis versus infiltrate noted. Small hiatal hernia noted, mild cardiomegaly noted. Renal cyst also noted. A 1 cm high density left adrenal lesion noted. Moderate chronic appearing compression deformity of T12 vertebra noted. CT scan of the head was unremarkable. CLINICAL IMPRESSION: 1. Acute respiratory failure. 2. Chronic obstructive pulmonary disease exacerbation. 3. Acute kidney injury. 4. Hypertension. 5. Parkinson's disease. 6. Degenerative joint disease. 7. Dysphagia secondary to Parkinson's. 8. Rule out micro aspiration in the view of Parkinson's disease. 9. Left renal lesions, needs further evaluation. 10. Neurogenic bladder. 11. Coronary artery disease. PLAN: 1. Admit this patient to Med/Surg telemetry unit, provide oxygen. 2. Nebulizer treatment. 3. IV steroid. 4. IV antibiotic. 5. Dysphagia evaluation. 6. Pulmonary toilet. 7. General nursing care. 8. Appropriate home medicine reconciliation. 9. Renal ultrasound. 10. Follow lab. 11. Infectious Disease consultation. 12. Follow internet sales consultant's recommendation. 13. Care plan reviewed and discussed with the patient's at bedside. All questions have been answered. JOB# [id number]
[2017-12-12] MEDS: Albuterol/Ipratropium Neb 3 ML AERS HHN SCH ×2 (13:15→18:31)
[2017-12-12] MEDS ORDERED: LEVODOPA PO SCH (14:00)
[2017-12-12] MEDS ORDERED: CARBIDOPA PO SCH (14:00)
[2017-12-12] MEDS: Azithromycin 500 MG in Sodium Chloride 0.9% 250 ML IV SCH (15:54)
[2017-12-12] MEDS: Ferrous Sulfate 325 MG TAB PO SCH (16:51)
[2017-12-12] MEDS ORDERED: CRANBERRY FRUIT PO SCH (17:00)
[2017-12-13] MEDS: Albuterol/Ipratropium Neb 3 ML AERS HHN SCH ×4 (00:18→18:48)
[2017-12-13] MEDS: methylPREDNISolone SS 40 mg Vial IVP SCH ×3 (05:05→17:59)
[2017-12-13 06:36] LABS: ALB/GLOB RATIO 1.2 (1.0-1.8); ALBUMIN 3.4 gm/dL (4.2-5.5); ALKALINE PHOSPHATASE 56 U/L (34-104); ANION GAP 13.9 (7.0-16.0); BILIRUBIN,TOTAL 0.3 mg/dL (0.3-1.0); BUN - UREA NITROGEN 48 mg/dL (7-25); CALCIUM SERUM 8.9 mg/dL (8.6-10.3); CHLORIDE 113 mEq/L (98-107); CREATININE - SERUM 1.8 mg/dL (0.7-1.3); GLUCOSE 197 mg/dL (70-105); POTASSIUM SERUM 4.9 mEq/L (3.5-5.1); SGOT 12 U/L (13-39); SGPT/ALT 8 U/L (7-52); SODIUM SERUM 140 mEq/L (136-145); TOTAL PROTEIN,SERUM 6.2 gm/dL (6.0-8.3)
[2017-12-13 06:55] LABS: HEMATOCRIT 24.7 % (41.0-60); HEMOGLOBIN 8.5 gm/dL (12-16); MEAN CELL VOLUME 91.2 fl (80-99); MEAN CORPUSCULAR HEMOGLOBIN 31.3 pg (27.0-31.0); MEAN CORPUSCULAR HGB CONC 34.3 pg (28.0-36.0); MEAN PLATELET VOLUME 7.6 fl; PLATELET COUNT 197 Th/cmm (150-400); WHITE BLOOD COUNT 12.3 Th/cmm (4.8-10.8)
[2017-12-13 07:32] LABS: BAND NEUTROPHILE 1 % (0-10); LYMPHOCYTE 6 % (20-50); NEUTROPHILS 92 % (40-80)
[2017-12-13 07:33] LABS: BASOPHIL 0 % (0-3); EOSINOPHIL 0 % (0-5); MONOCYTE 1 % (2-10)
[2017-12-13] MEDS: Multivitamin w/ Minerals Tab PO SCH (09:15)
[2017-12-13] MEDS: Aspirin 81mg Chewable Tab PO SCH (09:16)
[2017-12-13] MEDS: Pantoprazole 40 mg EC Tab PO SCH (09:16)
[2017-12-13] MEDS: Atorvastatin Calcium 10 MG TAB PO SCH (09:16)
[2017-12-13] MEDS: Lactobacillus Rhamnosus GG 15 Billion CFU CAP.SPRINK PO SCH (09:16)
[2017-12-13] MEDS: Ferrous Sulfate 325 MG TAB PO SCH ×2 (09:16→16:15)
[2017-12-13] MEDS ORDERED: Probiotic Screen MC PRN (09:30)
[2017-12-13] MEDS: Azithromycin 500 MG in Sodium Chloride 0.9% 250 ML IV SCH (16:15)
[2017-12-13 17:23] LABS: A1C % 5.7 % (4.0-6.0)
--- NOTE | 2017-12-13 20:47 | Progress Notes ---
DATE: 12/13/2017 DATE OF SERVICE: 12/13/2017 SUBJECTIVE: The patient seen and examined. The patient is sitting in the bed, trying to eat. The patient eats independently. The patient coughs at times. The patient denies any chest pain or increasing shortness of breath. PHYSICAL EXAMINATION: VITAL SIGNS: Temperature 98, pulse is 95, respiratory rate 20, blood pressure 110/58. HEENT: No facial asymmetry. NECK: Supple, no JVD. HEART: Regular. LUNGS: Expiratory wheezing. ABDOMEN: Soft. No guarding or rigidity. Bowel sounds present. No palpable mass. EXTREMITIES: No edema. LABORATORY DATA: BUN and creatinine is 48 and 1.8, potassium 4.9, white count of 12.3, hemoglobin 8.5, platelet count of 197, 92% neutrophils. CLINICAL IMPRESSION: 1. Leukocytosis. 2. Chronic obstructive pulmonary disease exacerbation. 3. Most likely aspiration. 4. Hypertension. 5. Chronic kidney disease. 6. Parkinson's disease. 7. Degenerative joint disease. 8. Coronary artery disease. 9. History of cerebrovascular accident. PLAN: 1. Swallow evaluation currently pending. Continue oxygen. 2. Nebulizer treatment. 3. IV steroid. 4. IV antibiotic. 5. General nursing care. 6. Follow labs. 7. Follow device sales consultant recommendation. 8. Care plan reviewed and discussed with staff. JOB# [id number]
[2017-12-14] MEDS: Albuterol/Ipratropium Neb 3 ML AERS HHN SCH ×4 (01:21→19:15)
[2017-12-14] MEDS: methylPREDNISolone SS 40 mg Vial IVP SCH ×4 (03:59→18:53)
[2017-12-14 05:06] LABS: HEMOGLOBIN 9.3 gm/dL (12-16); MEAN CELL VOLUME 91.8 fl (80-99); MEAN CORPUSCULAR HEMOGLOBIN 31.6 pg (27.0-31.0); MEAN CORPUSCULAR HGB CONC 34.5 pg (28.0-36.0); MEAN PLATELET VOLUME 7.5 fl; PLATELET COUNT 208 Th/cmm (150-400); RED BLOOD COUNT 2.94 Mil/cmm (3.80-5.80); RED CELL DISTRIBUTION WIDTH 13.1 % (11.5-20.0); WHITE BLOOD COUNT 14.6 Th/cmm (4.8-10.8)
[2017-12-14 05:31] LABS: ALB/GLOB RATIO 1.3 (1.0-1.8); ALBUMIN 3.8 gm/dL (4.2-5.5); ALKALINE PHOSPHATASE 56 U/L (34-104); ANION GAP 15.7 (7.0-16.0); BILIRUBIN,TOTAL 0.3 mg/dL (0.3-1.0); BUN - UREA NITROGEN 50 mg/dL (7-25); CALCIUM SERUM 9.3 mg/dL (8.6-10.3); CARBON DIOXIDE 18.8 mEq/L (21.0-31.0); CHLORIDE 112 mEq/L (98-107); CREATININE - SERUM 1.8 mg/dL (0.7-1.3); GLUCOSE 207 mg/dL (70-105); POTASSIUM SERUM 4.5 mEq/L (3.5-5.1); SGOT 18 U/L (13-39); SGPT/ALT 18 U/L (7-52); SODIUM SERUM 142 mEq/L (136-145); TOTAL PROTEIN,SERUM 6.7 gm/dL (6.0-8.3)
[2017-12-14 06:09] LABS: BAND NEUTROPHILE 2 % (0-10); LYMPHOCYTE 4 % (20-50); MONOCYTE 2 % (2-10); NEUTROPHILS 92 % (40-80)
[2017-12-14 06:10] LABS: PLATELET ESTIMATE ADEQUATE (NORMAL)
--- NOTE | 2017-12-14 08:55 | Diagnostic Imaging Report ---
CHEST X-RAY: AP view INDICATION: Aspiration COMPARISON: CT the chest on 12/11/2017 FINDINGS: Chronic lung changes are seen with increased bibasilar lung markings. No focal consolidation. No definite effusions. Mild cardiomegaly is noted with tortuous aorta. There is probable small hiatal hernia. Gas-filled loops of bowel upper abdomen are noted. IMPRESSION: Increased bibasilar lung markings favoring atelectatic changes. No focal consolidation identified. Underlying infiltrate of the lung bases is less likely. Mild cardiomegaly with tortuous aorta. Possible small hiatal hernia.
[2017-12-14] MEDS: Albuterol/Ipratropium Neb 3 ML AERS HHN PRN (09:34)
[2017-12-14] MEDS: Atorvastatin Calcium 10 MG TAB PO SCH (09:48)
[2017-12-14] MEDS: Aspirin 81mg Chewable Tab PO SCH (09:48)
[2017-12-14] MEDS: Ferrous Sulfate 325 MG TAB PO SCH ×2 (09:48→16:57)
[2017-12-14] MEDS: Multivitamin w/ Minerals Tab PO SCH (09:49)
[2017-12-14] MEDS: Lactobacillus Rhamnosus GG 15 Billion CFU CAP.SPRINK PO SCH (09:49)
[2017-12-14] MEDS: Pantoprazole 40 mg EC Tab PO SCH (09:50)
[2017-12-14] MEDS: Azithromycin 500 MG in Sodium Chloride 0.9% 250 ML IV SCH (16:55)
--- NOTE | 2017-12-14 18:06 | Progress Notes ---
DATE: 12/14/2017 SUBJECTIVE: The patient seen and examined. The patient is sitting in the chair, eating his food. It was noted that the patient is eating regular consistency food. The patient did have a swallow evaluation and has passed mechanical soft diet. The patient currently denies any fever or chills or increasing chest pain. Urine culture did grow Klebsiella pneumoniae, ESBL now has isolation. The patient denies any fever or chills. PHYSICAL EXAMINATION: VITAL SIGNS: Temperature 98.6, pulse is 103, respiratory rate 18, and blood pressure 130/68. HEENT: No facial asymmetry. NECK: Supple, no JVD. HEART: Regular. CHEST: Lung equal in expansion, no expiratory wheezing. ABDOMEN: Soft. No guarding or rigidity. Bowel sounds are present. No palpable mass. EXTREMITIES: No edema. No cyanosis. Peripheral pulses are +1. No calf tenderness noted. NEUROLOGIC: Alert, awake, follows command. AVAILABLE DIAGNOSTIC DATA: White count of 14.6, hemoglobin 9.3, and platelet count of 208. BUN and creatinine is 50 and 1.8, potassium 4.5. Clinical chest x-ray is done, which did reveal the patient has an increased bibasilar marking with possible ____ like infiltrate. CLINICAL IMPRESSION: 1. Most likely aspiration pneumonia. 2. Chronic obstructive pulmonary disease exacerbation. 3. Chronic kidney disease, stage III. 4. Hypertension. 5. Parkinson's disease. 6. Anemia of chronic illness. 7. Degenerative joint disease. 8. Dysphagia. PLAN: 1. Dysphagia diet. 2. Speech therapy for dysphagia treatment. 3. IV antibiotic. 4. IV steroid. 5. Nebulizer treatment. 6. Pulmonary toilet. 7. General nursing care. 8. Follow up lab. 9. Follow business analysis consultant's recommendation. 10. Care plan reviewed and discussed with staff. JOB# [id number]
[2017-12-14] MEDS: Budesonide 0.5 Mg/2 mL Ud HHN SCH (19:15)
[2017-12-15] MEDS: methylPREDNISolone SS 40 mg Vial IVP SCH ×4 (00:09→17:32)
--- NOTE | 2017-12-15 00:37 | Consultation ---
DATE OF CONSULTATION: 12/14/2017 PULMONARY AND CRITICAL CARE CONSULTATION REASON FOR CONSULTATION: Pneumonia. CONSULT NOTE: This is a 77-year-old gentleman, very minimal history from the patient, lives in a convalescent home with a history of multiple problems includin. Parkinson. 2. Hypertension. 3. Benign prostatic hypertrophy. 4. History of neurogenic bladder. 5. History of CVA. 6. History of COPD. Added problems with coughing and shortness of breath in a custodial for a couple of days, was given symptom related medication, but subsequently the patient continued to have coughing and wheezing, "chest congestion" and convalescent home x-ray shows pneumonia. Subsequently, the patient was admitted for further evaluation and necessary treatment. The patient basically with very little communication and the patient complaints of some chest congestion, questionable dysphagia, but otherwise unremarkable. No fever, chest pain, or hemoptysis. PAST MEDICAL HISTORY: Predominantly parkinsonism, question of dysphagia, coronary artery disease, COPD, neurogenic bladder, history of previous CVA, and possibly suggestive obstructive sleep apnea syndrome. SMOKING HISTORY: Nil. No history of smoking, drug use, etc. FAMILY HISTORY: Noncontributory. PHYSICAL EXAMINATION: GENERAL: This is an elderly looking gentleman, awake, not in acute distress. VITAL SIGNS: The patient's recorded vital signs, respiration is 20 and the patient has been afebrile since the time of admission. The patient's blood pressure is 110/60, saturation 96 on supplement oxygen. HEENT: Head is essentially unremarkable. Pupils appear to be equal and reactive to light. Conjunctivae are slightly pallor. Oral cavity fair dental hygiene small oropharyngeal opening. NECK: No nodes in the neck could be palpated. Good bilateral carotid upstroke. CHEST: Shows occasional rhonchi with secretory noise. HEART: Regular. ABDOMEN: Soft, nontender. EXTREMITIES: No peripheral edema. LABORATORY DATA: The patient's white count is 14,000 today, hemoglobin 9.3. Electrolytes are okay except for creatinine 1.8. The patient's chest x-ray shows some interstitial changes, mostly on the right side. The patient is currently getting acetaminophen, DuoNeb breathing treatment, ____, Zithromax as well as Sinemet as well as Plavix as well as iron sulfate, Lasix and also lisinopril and also getting Medrol Dosepak with a metoprolol tartrate for blood pressure and some probiotic. Also has been getting ____ piperacillin with Zithromax. IMPRESSION: 1. The patient has bilateral mostly left lingular region mild infiltrate. 2. There is a heavy bronchovascular marking bilaterally. As differential will be possibly aspiration in view of Parkinsonism very likelihood and a question also of obstructive sleep apnea syndrome. PLANS AND SUGGESTIONS: We will give aggressive inhalation treatment, add inhaled steroid to current treatment. Await further sputum studies and also we will consider for speech therapy for further evaluation and go from there. JOB# [id number]
[2017-12-15] MEDS: Albuterol/Ipratropium Neb 3 ML AERS HHN SCH ×4 (01:24→19:05)
[2017-12-15 06:29] LABS: HEMOGLOBIN 9.2 gm/dL (12-16); MEAN CELL VOLUME 91.7 fl (80-99); MEAN CORPUSCULAR HEMOGLOBIN 31.3 pg (27.0-31.0); MEAN CORPUSCULAR HGB CONC 34.2 pg (28.0-36.0); MEAN PLATELET VOLUME 7.6 fl; PLATELET COUNT 205 Th/cmm (150-400); RED BLOOD COUNT 2.94 Mil/cmm (3.80-5.80); WHITE BLOOD COUNT 13.5 Th/cmm (4.8-10.8)
[2017-12-15] MEDS: Budesonide 0.5 Mg/2 mL Ud HHN SCH ×2 (07:12→19:05)
[2017-12-15 07:22] LABS: BAND NEUTROPHILE 1 % (0-10); BASOPHIL 0 % (0-3); EOSINOPHIL 0 % (0-5); LYMPHOCYTE 7 % (20-50); MONOCYTE 2 % (2-10); NEUTROPHILS 90 % (40-80)
[2017-12-15 09:21] LABS: ALB/GLOB RATIO 1.2 (1.0-1.8); ALBUMIN 3.5 gm/dL (4.2-5.5); ALKALINE PHOSPHATASE 53 U/L (34-104); ANION GAP 12.8 (7.0-16.0); BILIRUBIN,TOTAL 0.3 mg/dL (0.3-1.0); BUN - UREA NITROGEN 44 mg/dL (7-25); CARBON DIOXIDE 21.7 mEq/L (21.0-31.0); CHLORIDE 113 mEq/L (98-107); CREATININE - SERUM 1.6 mg/dL (0.7-1.3); GLUCOSE 200 mg/dL (70-105); POTASSIUM SERUM 4.5 mEq/L (3.5-5.1); SGOT 15 U/L (13-39); SGPT/ALT 20 U/L (7-52); SODIUM SERUM 143 mEq/L (136-145); TOTAL PROTEIN,SERUM 6.4 gm/dL (6.0-8.3)
[2017-12-15] MEDS: Atorvastatin Calcium 10 MG TAB PO SCH (09:29)
[2017-12-15] MEDS: Aspirin 81mg Chewable Tab PO SCH (09:29)
[2017-12-15] MEDS: Ferrous Sulfate 325 MG TAB PO SCH ×2 (09:30→17:48)
[2017-12-15] MEDS: Lactobacillus Rhamnosus GG 15 Billion CFU CAP.SPRINK PO SCH (09:30)
[2017-12-15] MEDS: Multivitamin w/ Minerals Tab PO SCH (09:31)
[2017-12-15] MEDS: Pantoprazole 40 mg EC Tab PO SCH (09:31)
--- NOTE | 2017-12-15 09:54 | Diagnostic Imaging Report ---
Chest x-ray (2 views) HISTORY: Shortness of breath Compared to prior exam of September 12, 2017, there is a poor inspiration. The heart size appears generous. Allowing for the poor inspiration, no acute focal pulmonary processes are seen. Osteoporosis throughout the spine. IMPRESSION: 1. Allowing for a poor inspiration, no acute focal pulmonary processes 2. Cardiomegaly
[2017-12-15 10:15] LABS: ALLEN TEST YES; pH 7.41 (7.35-7.45)
[2017-12-15] MEDS: Azithromycin 500 MG in Sodium Chloride 0.9% 250 ML IV SCH (17:31)
[2017-12-16] MEDS: methylPREDNISolone SS 40 mg Vial IVP SCH ×3 (00:20→22:13)
--- NOTE | 2017-12-16 00:34 | Progress Notes ---
DATE: 12/15/2017 SUBJECTIVE: The patient seen and examined. The patient is lying in the bed. No new event. The patient's family at bedside. The patient has a followup chest x-ray done today, which did reveal no acute pulmonary process. Cardiomegaly noted. Currently on dysphagia diet. PHYSICAL EXAMINATION: VITAL SIGNS: Temperature 98.4, pulse is 100, respiratory rate 18, blood pressure 120/64. HEENT: No facial asymmetry. NECK: Supple, no JVD. HEART: Regular. LUNGS: Expiratory wheezing. ABDOMEN: Soft. No guarding or rigidity. Bowel sounds are present. No palpable mass. EXTREMITIES: No edema. CLINICAL IMPRESSION: 1. Acute respiratory failure. 2. Chronic obstructive pulmonary disease exacerbation. 3. Dysphagia with aspiration. 4. Chronic kidney disease. 5. Parkinson's disease. 6. Hypertension. 7. Degenerative joint disease. 8. Debility. PLAN: 1. Oxygen. 2. Nebulizer treatment. 3. IV antibiotic. 4. Pulmonary toilet. 5. Pulmonary followup. 6. ____. 7. General nursing care. 8. Follow lab. 9. Follow consult recommendation. 10. Care plan reviewed and discussed with staff. JOB# [id number]
[2017-12-16] MEDS: Albuterol/Ipratropium Neb 3 ML AERS HHN SCH ×4 (00:46→19:03)
--- NOTE | 2017-12-16 01:34 | Progress Notes ---
DATE: 12/15/2017 PULMONARY PROGRESS NOTE: PROBLEM LIST: Tracheobronchitis with possibly mild infiltrate on the left base underlying history of Parkinson's, possibly suspect aspiration and suspect sleep apnea syndrome with history of "COPD" as well as CVA symptoms. He is now feeling okay, offers no specific new symptomatology. No coughing, wheezing or chest pain. PHYSICAL EXAMINATION: VITAL SIGNS: Afebrile, pulse is 75 and saturation is 95 on room air. NECK: Veins not visualized. CHEST: Shows diminished air entry without much of adventitious breath sounds. HEART: Regular. ABDOMEN: Soft, nontender. LABORATORY DATA: The patient's chest x-ray was fairly clear with poor inspiration and the patient's laboratory studies: White count is slowly trending down to 13.5, hemoglobin 9.2. Speech therapy evaluation I do not see in the computer system. ASSESSMENT: The patient clinically better, stable. PLANS AND SUGGESTIONS: Await for speech therapy evaluation pending. Can make a discharge planning, etc., and go from there. JOB# [id number]
[2017-12-16 06:06] LABS: HEMATOCRIT 28.2 % (41.0-60); HEMOGLOBIN 9.6 gm/dL (12-16); LYMPHOCYTE ABSOLUTE 0.7 Th/cmm (1.5-3.0); MEAN CELL VOLUME 91.5 fl (80-99); MEAN CORPUSCULAR HEMOGLOBIN 31.3 pg (27.0-31.0); MEAN CORPUSCULAR HGB CONC 34.2 pg (28.0-36.0); MEAN PLATELET VOLUME 7.7 fl; MONOCYTE ABSOLUTE 0.3 Th/cmm (0.3-1.0); NEUTROPHILE ABSOLUTE 12.4 Th/cmm (1.8-8.0); PLATELET COUNT 224 Th/cmm (150-400); RED BLOOD COUNT 3.08 Mil/cmm (3.80-5.80); RED CELL DISTRIBUTION WIDTH 12.9 % (11.5-20.0); WHITE BLOOD COUNT 13.4 Th/cmm (4.8-10.8)
[2017-12-16 06:35] LABS: ALB/GLOB RATIO 1.3 (1.0-1.8); ALBUMIN 3.5 gm/dL (4.2-5.5); ALKALINE PHOSPHATASE 51 U/L (34-104); ANION GAP 14.7 (7.0-16.0); BILIRUBIN,TOTAL 0.3 mg/dL (0.3-1.0); BUN - UREA NITROGEN 49 mg/dL (7-25); CALCIUM SERUM 8.9 mg/dL (8.6-10.3); CARBON DIOXIDE 22.6 mEq/L (21.0-31.0); CHLORIDE 112 mEq/L (98-107); CREATININE - SERUM 1.7 mg/dL (0.7-1.3); GLUCOSE 209 mg/dL (70-105); POTASSIUM SERUM 4.3 mEq/L (3.5-5.1); SGOT 14 U/L (13-39); SGPT/ALT 20 U/L (7-52); SODIUM SERUM 145 mEq/L (136-145); TOTAL PROTEIN,SERUM 6.2 gm/dL (6.0-8.3)
[2017-12-16] MEDS: Budesonide 0.5 Mg/2 mL Ud HHN SCH ×2 (06:44→19:20)
[2017-12-16 06:53] LABS: BAND NEUTROPHILE 1 % (0-10); LYMPHOCYTE 6 % (20-50); MONOCYTE 2 % (2-10); NEUTROPHILS 91 % (40-80); PLATELET ESTIMATE ADEQUATE (NORMAL)
[2017-12-16] MEDS: Atorvastatin Calcium 10 MG TAB PO SCH (09:26)
[2017-12-16] MEDS: Aspirin 81mg Chewable Tab PO SCH (09:26)
[2017-12-16] MEDS: Ferrous Sulfate 325 MG TAB PO SCH ×2 (09:27→16:14)
[2017-12-16] MEDS: Lactobacillus Rhamnosus GG 15 Billion CFU CAP.SPRINK PO SCH (09:29)
[2017-12-16] MEDS: Multivitamin w/ Minerals Tab PO SCH (09:30)
[2017-12-16] MEDS: Pantoprazole 40 mg EC Tab PO SCH (09:30)
--- NOTE | 2017-12-16 10:40 | Progress Notes ---
DATE: 12/16/2017 SUBJECTIVE: The patient seen and examined. The patient seems confused than yesterday. The patient had a repeat swallow evaluation. Now, the patient is on pureed diet. The patient remained afebrile. OBJECTIVE: VITAL SIGNS: Temperature 98, pulse is 106, respiratory rate 18, blood pressure 124/75. HEENT: No facial asymmetry. NECK: Supple. HEART: Regular. LUNGS: Expiratory wheezing. ABDOMEN: Soft. No guarding. No rigidity. Bowel sounds are present. No palpable mass. EXTREMITIES: No edema. NEUROLOGY: No spasticity noted. AVAILABLE DIAGNOSTIC DATA: White count of 13.4, hemoglobin 9.6, platelet count 224. BUN and creatinine is 49 and 1.7, glucose of 209, potassium of 4.3, albumin of 3.5. CLINICAL IMPRESSION: 1. Chronic obstructive pulmonary disease exacerbation. 2. Microaspiration. 3. Leukocytosis secondary to steroids. 4. Normocytic normochromic anemia secondary to anemia of inflammation. 5. Chronic kidney disease. 6. Elevated blood sugar secondary to steroids. 7. High risk for fall. 8. Parkinson's disease. PLAN: 1. Cut down IV steroids. 2. Increase activity. 3. Follow lab. 4. Oxygen. 5. Nebulizer treatment. 6. General nursing care. 7. Follow consult recommendation. 8. Dysphagia treatment. 9. Dysphagia diet. 10. Care plan reviewed and discussed. JOB# [id number]
[2017-12-16] MEDS: Azithromycin 500 MG in Sodium Chloride 0.9% 250 ML IV SCH (16:13)
--- NOTE | 2017-12-17 00:06 | Progress Notes ---
DATE: 12/16/2017 PULMONARY PROGRESS NOTE PROBLEM LIST: 1. Pneumonia, mild. 2. Tracheobronchitis. 3. Parkinsonism. SYMPTOMS: Nil, feeling better, not too much coughing or chest congestion. PHYSICAL EXAMINATION: VITAL SIGNS: T-max 96.8, blood pressure 136/74, saturation 98% on room air. NECK: Veins not visualized. CHEST: Shows diminished air entry without much of adventitious breath sounds. HEART: Regular. EXTREMITIES: Shows no peripheral edema. ASSESSMENT: The patient is clinically stable. Pulmonary-deluca okay for discharge. Pending Dr. Yoder's evaluation and go from there. JOB# [id number]
[2017-12-17] MEDS: Albuterol/Ipratropium Neb 3 ML AERS HHN SCH ×2 (00:38→07:16)
[2017-12-17] MEDS: Budesonide 0.5 Mg/2 mL Ud HHN SCH (07:16)
[2017-12-17] MEDS: Ferrous Sulfate 325 MG TAB PO SCH (08:42)
[2017-12-17] MEDS: Pantoprazole 40 mg EC Tab PO SCH (08:42)
[2017-12-17] MEDS: Atorvastatin Calcium 10 MG TAB PO SCH (08:42)
[2017-12-17] MEDS: Lactobacillus Rhamnosus GG 15 Billion CFU CAP.SPRINK PO SCH (08:42)
[2017-12-17] MEDS: Multivitamin w/ Minerals Tab PO SCH (08:42)
[2017-12-17] MEDS: Aspirin 81mg Chewable Tab PO SCH (08:44)
[2017-12-17] MEDS: methylPREDNISolone SS 40 mg Vial IVP SCH (08:47)
--- NOTE | 2017-12-18 00:44 | Progress Notes ---
DATE: 12/17/2017 SUBJECTIVE: The patient seen and examined. The patient's at bedside. The patient is participating with physical therapy. The patient is more alert, awake. The patient denies any new complaint. Currently on lower doses of IV steroid. The patient's breathing is better. PHYSICAL EXAMINATION: VITAL SIGNS: See nurse's note. HEENT: Mask like face. NECK: Supple, no JVD. HEART: Regular. LUNGS: Has mild expiratory wheezing. ABDOMEN: Soft. No guarding or rigidity. Bowel sounds are present. EXTREMITIES: No edema. NEUROLOGIC: Unremarkable spasticity noted. CLINICAL IMPRESSION: 1. Chronic obstructive pulmonary disease exacerbation. 2. Aspiration. 3. Dysphagia. 4. Hypertension. 5. Parkinson's disease. 6. Benign prostatic hypertrophy. 7. Bladder outlet obstruction. 8. Degenerative joint disease. 9. High risk for fall. PLAN: 1. Discharge to fpc. 2. Discontinue IV Solu-Medrol and switch to p.o. prednisone. 3. Continue to provide oxygen, nebulizer treatments, and complete the ____ in a fpc. Discharge instructions discussed with the patient's family at bedside. automobile assembler used. JOB# [id number]
--- NOTE | 2018-01-05 21:46 | Discharge Summary ---
DATE OF DISCHARGE: 12/17/2017 DATE OF DISCHARGE TO CARE HOME: 12/17/2017. PRINCIPAL DIAGNOSES: 1. Chronic obstructive pulmonary disease exacerbation. 2. Aspiration. 3. Dysphagia. 4. Hypertension. 5. Parkinson's disease. 6. Benign prostatic hypertrophy. 7. Bladder outlet obstruction. 8. Degenerative joint disease. 9. High risk for fall. 10. Debility. 11. Decline in self-care mobility. 12. Coronary artery disease. 13. Neurogenic bladder. BRIEF STATEMENT FOR THE REASON FOR ADMISSION: A 77-year-old resident of skilled nursing sent to Emergency Room for evaluation of increasing shortness of breath, cough, and congestion. After being evaluated by Emergency Room MD, the patient was admitted to the hospital for further treatment. Please refer to my H and P for further information. HOSPITAL COURSE: The patient was admitted to med/surg floor for oxygen, nebulizer treatment, IV steroids, IV antibiotics were given. Dysphagia evaluation was done. Pulmonary toilet, general nursing care, and appropriate home medicine was also reconciliated. The patient did have evaluation of renal ultrasound as well. Infectious Disease consultation was also requested. The patient was seen by the workers compensation consultant and appropriate treatment plan was carried on. The patient also had a CT scan of the chest, which did reveal chronic interstitial lung changes in the left basilar passive atelectasis area versus infiltrate. The patient was improving with the treatment plan as directed by myself and workers compensation consultant. It was recommended that the patient can be downgraded to lower level of care and get additional care at the lower level, so the patient was discharged to skilled nursing on 12/17/2017 in stable condition. The patient will be followed by myself and my nurse practitioner. At the time of discharge, all of his meds were reconciled. JOB# [id number]
== END 2017-12-17 13:30 | DRG 871 ==
LOC: ER 13:08 → MSI 16:07 → TELE 18:28
PROVIDERS: ADMIT Internal Medicine; ATTEND Internal Medicine
DX: A41.9 Sepsis, unspecified organism (principal); J96.00 Acute respiratory failure, unspecified whether with hypoxia or hypercapnia; J69.0 Pneumonitis due to inhalation of food and vomit; N17.9 Acute kidney failure, unspecified; J44.1 Chronic obstructive pulmonary disease with (acute) exacerbation; N39.0 Urinary tract infection, site not specified; J44.0 Chronic obstructive pulmonary disease with (acute) lower respiratory infection; G20 Parkinson's disease; M19.90 Unspecified osteoarthritis, unspecified site; N31.9 Neuromuscular dysfunction of bladder, unspecified; I25.10 Atherosclerotic heart disease of native coronary artery without angina pectoris; N18.3 Chronic kidney disease, stage 3 (moderate); R13.10 Dysphagia, unspecified; N32.0 Bladder-neck obstruction; I12.9 Hypertensive chronic kidney disease with stage 1 through stage 4 chronic kidney disease, or unspecified chronic kidney disease; N40.0 Benign prostatic hyperplasia without lower urinary tract symptoms; T38.0X5A Adverse effect of glucocorticoids and synthetic analogues, initial encounter; D72.829 Elevated white blood cell count, unspecified; B96.1 Klebsiella pneumoniae [K. pneumoniae] as the cause of diseases classified elsewhere; D63.8 Anemia in other chronic diseases classified elsewhere; N28.9 Disorder of kidney and ureter, unspecified; F03.90 Unspecified dementia, unspecified severity, without behavioral disturbance, psychotic disturbance, mood disturbance, and anxiety; Z91.81 History of falling; Y92.89 Other specified places as the place of occurrence of the external cause; Z79.899 Other long term (current) drug therapy
CPT/HCPCS: 36415-UA; 36600-90; 70450-TC; 71045-TC; 71046-TC; 71250-TC; 80053-TC; 81001-TC; 82803-TC; 83036-90; 83605; 83880-TC; 84443-TC; 84484-TC; 85007-TC; 85025-TC; 85379-TC; 85610-TC; 87086-90; 93005; 94640; 94760; 96374; 96375; 97530; J0456; J0696; J2543; J2920; J2930; J7030; X3401; X3904; X4304; X7704; Z7610